=== PATIENT | female | born 1930 | race Caucasian/White ===

== ENCOUNTER 2016-12-27 14:26 | Inpatient (IN) | payer MEDICARE, OTHER ==
[~2016-12-27] VITALS: Ht 165.1 cm; Wt 74.4 kg
[~2016-12-27 14:26] MED LIST: AC325T PO; AMLO10TA82 PO; AMLO5TAB2 PO; ASP81CT PO; ASPI-266 PO; ASPI-892 PO; ASPI325T32 PO; ATEN50TA PO; Aspirin PO; BISA5TAB8 PO; CLOP75TA PO; DOCU100T7 PO; FEXO-104 PO; FLUT16SP22 NSEACH; GINK60CA13 PO; KRIL500C PO; LISI10TA2 PO; LISI20TA PO; LOVA40TA2 PO; LVT.025T PO; LVT.05T PO; METO25TA PO; MTP25TSR PO; MULT-974 PO; MULT1TAB12 PO; PANT40TA PO; SIMV40TA4 PO; TRIA1TAB PO; TRIAMT/HCTZ PO; [UNRECOGNIZED DRUG - OTHER] PO
--- OUTSIDE RECORDS SUMMARY | 2016-12-27 14:31 | XMS REPORT | Continuity of Care Document ---
Author Author [facility] Organization [facility] Address Unknown Phone Unavailable Care Team Providers Care Bank Worker Name Role Phone MARYBETH PAUL MD PCP Insurance Providers Payer Name Policy Number Subscriber Name Relationship Wps Medicare [id number] Nasima Tolbert 18 Self / Same As Patient Advance Directives Directive Response Recorded Date/Time Advance Directives Yes 03/30/15 2:15pm Health Care Power of Director Of Market Analysis Y Mitesh 03/30/15 2:15pm Organ Donor Yes 03/30/15 2:15pm Resuscitation Status DNR-Pt Request 03/30/15 2:15pm Problems No known problems or medical conditions. Medications Medication Dose Route Sig Days/Qty Instructions Order Date Discontinued Date Status Amlodipine Besylate (Norvasc 10 Mg) 10 Mg PO DAILY 01/20/12 Discontinued Simvastatin 40 Mg PO BEDTIME 01/20/12 03/30/15 Discontinued Lisinopril 20 Mg PO TWICE A DAY 01/20/12 04/02/15 Discontinued [Triamt/Hctz] 1 Tab PO EVERY OTHER DAY 01/20/12 02/21/12 Discontinued Levothyroxine Sodium (Levothroid) 75 Mcg PO DAILY 01/20/12 03/30/15 Discontinued Atenolol 50 Mg PO TWICE A DAY 01/20/12 03/30/15 Discontinued Docusate Sodium 100 Mg PO DAILY 01/20/12 03/30/15 Discontinued [Abc Plus Senior] 1 Tab PO DAILY 01/20/12 03/30/15 Discontinued Aspirin 81 Mg PO DAILY 01/20/12 02/22/12 Discontinued Krill Oil 300 Mg PO DAILY 01/20/12 02/07/12 Discontinued Acetaminophen 650 Mg PO EVERY 4HRS PRN 01/20/12 02/22/12 Discontinued Krill Oil 300 Mg PO DAILY 02/07/12 02/22/12 Discontinued Triamterene/Hydrochlorothiazid 1 Each PO THREE TIMES A WEEK 02/21/12 02/22/12 Discontinued Bisacodyl 5 Mg PO DAILY 02/21/12 03/30/15 Discontinued Clopidogrel Bisulfate 75 Mg PO DAILY 02/22/12 Active Aspirin 81 Mg PO DAILY 02/22/12 03/31/15 Discontinued Amlodipine Besylate (Norvasc 5 Mg) 5 Mg PO DAILY 03/30/15 04/02/15 Discontinued Levothyroxine Sodium (Levothroid) 50 Mcg PO DAILY 03/30/15 Active Lovastatin (Mevacor) 40 Mg PO DAILY 03/30/15 Active Pantoprazole Sodium 40 Mg PO 1800 03/30/15 Active Fluticasone Propionate 2 Sprays NSEACH DAILY 03/30/15 Active Multivitamin 1 Tab PO DAILY 03/30/15 Active Aspirin 81 Mg PO DAILY 03/31/15 03/31/15 Discontinued Lisinopril 10 Mg PO DAILY 30 Qty 04/02/15 Active [Aspirin] 81 Mg PO DAILY 30 Qty 04/02/15 Active Metoprolol Succinate (Metoprolol ER 25mg) 25 Mg PO DAILY@1999 30 Qty Active Social History Social History Problem Response Recorded Date/Time Alcohol Use Occasionally Uses 03/30/2015 2:14pm Recreational Drug Use No 03/30/2015 2:14pm Recent Foreign Travel No 03/30/2015 2:15pm Recent Infectious Disease Exposure No 03/30/2015 2:14pm Hospitalization with Isolation Denies 04/02/2015 12:21pm Smoking Status Former Smoker 03/30/2015 2:15pm Query Response Start Date Stop Date Smoking Status Former Smoker 11/14/1984 Hospital Discharge Instructions Patient Instructions Physician Instructions New, Converted or Re-Newed RX: Transmitted to Pharmacy (Aspirin is over the counter) Goal/Follow Up Appt: Follow up with Dr. Hopkins in 2 weeks. Follow up with primary doctor within 2 weeks after discharge. Return to [facility] For: Chest pain, shortness of breath, fever Discharge Diet: Cardiac Diet Activity as Tolerated: Yes Care Plan Goal:: Follow up with Dr. Hopkins in 2 weeks.Follow up with primary doctor within 2 weeks after discharge. Plan of Care Discharge Date 04/02/15 10:50am Disposition 30 STILL A PATIENT Instructions/Education Provided CHF CARDIAC CATH DISCHARGE INSTRUC Coronary Intravascular Stent Placement (DC) Prescriptions See Medications Section Referrals TRACEY HOPKINS MD (Unspecified) 04/16/15 Address: [address] [place] [address] [id number] Reason(s) for Referral: APRIL 16, 2015 AT 3:00 P.M. MARYBETH PAUL MD (Unspecified) 04/18/15 Address: [address] [place] [address] [id number] Reason(s) for Referral: APRIL 18, 2015 AT 9:00 A.M. Functional Status Query Response Date Recorded Comprehension Ability Understands Concepts April 02, 2015 8:30am Allergies, Adverse Reactions, Alerts Allergen Type Severity Reaction Status Last Updated Codeine Allergy Unknown Active 03/30/15 Immunizations Name Given Type Date of Pneumonia Vaccine 11/14/11 Historical Vital Signs Acute Vital Signs Vital Response Date/Time Temperature (Fahrenheit) 99.1 degrees F (97.6 - 99.5) Temperature (Calculated Celsius) 37.47613 degrees C (36.4 - 37.5) Temperature Source Temporal Pulse Rate (adult) 89 bpm (60 - 90) Respiratory Rate 20 bpm (12 - 24) O2 Sat by Pulse Oximetry 93 % (88 - 100) Blood Pressure 145/75 mm Hg Pain Pain Intensity 0 Height (Feet) 5 feet Height (Inches) 5.00 inches Height (Calculated Centimeters) 165.103688 cm Weight (Pounds) 174 pounds Weight (Ounces) 1.0 oz Weight (Calculated Grams) 85116.423 gm Weight (Calculated Kilograms) 78.033956 kilograms Calculated BMI 24.96 Results Laboratory Results Test Name Result Units Flags Reference Collection Date/Time Result Date/ Time Comments White Blood Count 6.5 10^3/uL 4.3-11.0 04/02/2015 3:5304/02/2015 4: 17am Red Blood Count 3.23 10^6/uL L 4.35-5.85 04/02/2015 3:5304/02/2015 4: 17am Hemoglobin 9.9 G/DL L 11.5-16.0 04/02/2015 3:5304/02/2015 4:17am Hematocrit 31 % L 35-52 04/02/2015 3:5304/02/2015 4:17am Mean Corpuscular Volume 94 FL 80-99 04/02/2015 3:04/02/2015 4: 17am Mean Corpuscular Hemoglobin 31 PG 25-34 04/02/2015 3:04/02/2015 4: 17am Mean Corpuscular Hemoglobin Concent 33 G/DL 32-36 04/02/2015 3: 4:17am Red Cell Distribution Width 14.4 % 10.0-14.5 04/02/2015 3:2014 4:17am Platelet Count 228 10^3/uL 130-400 04/02/2015 3:04/02/2015 4:17am Mean Platelet Volume 9.8 FL 7.4-10.4 04/02/2015 3:04/02/2015 4: 17am Neutrophils (%) (Auto) 76 % H 42-75 04/02/2015 3:04/02/2015 4:17am Lymphocytes (%) (Auto) 15 % 12-44 04/02/2015 3:04/02/2015 4:17am Monocytes (%) (Auto) 8 % 0-12 04/02/2015 3:04/02/2015 4:17am Eosinophils (%) (Auto) 2 % 0-10 04/02/2015 3:04/02/2015 4:17am Basophils (%) (Auto) 0 % 0-10 04/02/2015 3:04/02/2015 4:17am Neutrophils # (Auto) 5.0 X 10^3 1.8-7.8 04/02/2015 3:53am 04/02/2015 4: 17am Lymphocytes # (Auto) 1.0 X 10^3 1.0-4.0 04/02/2015 3:53am 04/02/2015 4: 17am Monocytes # (Auto) 0.5 X 10^3 0.0-1.0 04/02/2015 3:53am 04/02/2015 4: 17am Eosinophils # (Auto) 0.1 10^3/uL 0.0-0.3 04/02/2015 3:53am 04/02/2015 4 :17am Basophils # (Auto) 0.0 10^3/uL 0.0-0.1 04/02/2015 3:53am 04/02/2015 4: 17am Erythrocyte Sedimentation Rate 10 MM/HR 0-30 03/30/2015 8:26pm 2014 8:54pm Prothrombin Time 13.5 SEC 12.2-14.7 04/02/2015 3:53am 04/02/2015 4: 40am INR Comment 1.1 0.8-1.4 04/02/2015 3:53am 04/02/2015 4:40am INTERPRETIVE DATA SUGGESTED THERAPEUTIC RANGE FOR INR'S: VENOUS THROMBOSIS, PULMONARY EMBOLISM, OR PREVENTION OF SYSTEMIC EMBOLISM (EG. IN ATRIAL FIBRILLATION): 2.0 - 3.0 MECHANICAL PROSTHETIC HEART VALVES: 2.5 - 3.5* *NOTE: INR'S UP TO 4.5 MAY BE NECESSARY IN SELECTED GROUPS OF HIGH RISK PATIENTS. [employer]IX[employer] [employer] OF CHEST PHYSICIANS CONSENSUS CONFERENCE ON ANTITHROMBOTIC THERAPY (2000). Activated Partial Thromboplast Time 33 SEC 24-35 2015 5:34am 6:59am Sodium Level 140 MMOL/L 135-145 04/02/2015 3:53am 04/02/2015 4:49am Potassium Level 3.8 MMOL/L 3.6-5.0 04/02/2015 3:53am 04/02/2015 4:49am Chloride Level 109 MMOL/L H 98-107 04/02/2015 3:53am 04/02/2015 4:49am Carbon Dioxide Level 20 MMOL/L L 21-32 04/02/2015 3:53am 04/02/2015 4: 49am Blood Urea Nitrogen 12 MG/DL 7-18 04/02/2015 3:53am 04/02/2015 4:49am Creatinine 0.77 MG/DL 0.60-1.30 04/02/2015 3:53am 04/02/2015 4:49am BUN/Creatinine Ratio 16 04/02/2015 3:53am 04/02/2015 4:49am Estimat Glomerular Filtration Rate > 60 04/02/2015 3:53am 2014 4:49am GFR INTERPRETIVE DATA UNITS FOR ESTIMATED GFR (eGFR): mL/min/1.73 M2 REFERENCE RANGE FOR ESTIMATED GFR (eGFR) eGFR NORMAL eGFR >60 MODERATELY DECREASED eGFR 30-59 SEVERLY DECREASED eGFR 15-29 KIDNEY FAILURE <15 (OR DIALYSIS) Glucose Level 98 MG/DL 70-105 04/02/2015 3:53am 04/02/2015 4:49am Glucometer 115 MG/DL H 70-110 03/31/2015 6:54pm 03/31/2015 7:01pm Calcium Level 8.3 MG/DL L 8.5-10.1 04/02/2015 3:53am 04/02/2015 4:49am Magnesium Level 1.8 MG/DL 1.8-2.4 04/02/2015 3:53am 04/02/2015 4:49am Total Bilirubin 0.4 MG/DL 0.1-1.0 03/30/2015 11:40am 03/30/2015 12: 07pm Alkaline Phosphatase 46 U/L 40-136 03/30/2015 11:40am 03/30/2015 12: 07pm Aspartate Amino Transf (AST/SGOT) 41 U/L H 5-34 03/30/2015 11:40am 2014 12:07pm Alanine Aminotransferase (ALT/SGPT) 17 U/L 0-55 03/30/2015 11:40am 12:07pm Troponin I 2.13 NG/ML CH <0.30 03/30/2015 11:40am 03/30/2015 12:14pm RESULT CALLED TO DANI/LAYLA AT 1213. RESULTS READ BACK: YES. Troponin I 3.76 NG/ML CH <0.30 03/30/2015 5:29pm 03/30/2015 6:00pm RESULT CALLED TO JEYSON AT 1759. RESULTS READ BACK: YES. Myoglobin 213.9 NG/ML H 10.0-92.0 03/30/2015 11:40am 03/30/2015 12:14pm Total Protein 7.1 G/DL 6.4-8.2 03/30/2015 11:40am 03/30/2015 12:07pm Albumin 4.3 G/DL 3.2-4.5 03/30/2015 11:40am 03/30/2015 12:07pm Triglycerides Level 114 MG/DL <150 03/31/2015 7:55am 03/31/2015 8:31am Cholesterol Level 152 MG/DL < 200 03/31/2015 7:55am 03/31/2015 8:31am HDL Cholesterol 50 MG/DL 40-60 03/31/2015 7:55am 03/31/2015 8:31am LDL Cholesterol Direct 70 MG/DL 1-129 03/31/2015 7:55am 03/31/2015 8: 31am VLDL Cholesterol 23 MG/DL 5-40 03/31/2015 7:55am 03/31/2015 8:31am C-Reactive Protein High Sensitivity 1.44 MG/DL H 0.00-0.50 03/30/2015 5: 29pm 03/30/2015 8:42pm Hemoglobin A1c 6.4 % H 4.5-6.2 03/31/2015 7:55am 03/31/2015 12:08pm Procedures Procedure Status Date Provider(s) Tracing only of electrocardiogram completed 03/30/15 REDD SWANSON APRN Color Doppler echocardiography completed 03/30/15 STEPHANIA ARORA MD Tracing only of electrocardiogram completed 03/30/15 TRACEY HOPKINS MD Encounters Encounter Location Date/Time Admitted Inpatient Via [facility] 03/30/15 12:54pm
[2016-12-27] MEDS ORDERED: FAMOTIDINE 20MG/2ML IV (PEPCID) IV STA (14:42)
[2016-12-27] MEDS ORDERED: LIDOCAINE 2% VISCOUS 15 ML UDC PO ONE (14:45)
[2016-12-27] MEDS ORDERED: ANTACID SUSP 30 ML UDC (MYLANTA) PO ONE (14:45)
[2016-12-27] MEDS ORDERED: ASPIRIN 81 MG CHEW (CHILDREN'S ASA) PO ONE (14:45)
[2016-12-27 14:51] LABS: BASOPHILS % (AUTO) 0 % (0-10); EOSINOPHILS # (AUTO) 0.1 10^3/uL (0.0-0.3); EOSINOPHILS % (AUTO) 1 % (0-10); LYMPHOCYTES # (AUTO) 0.9 X 10^3 (1.0-4.0); LYMPHOCYTES % (AUTO) 10 % (12-44); MEAN CORPUSCULAR HEMOGLOBIN 31 PG (25-34); MEAN CORPUSCULAR HGB CONC 34 G/DL (32-36); MEAN CORPUSCULAR VOLUME 93 FL (80-99); MEAN PLATELET VOLUME 9.4 FL (7.4-10.4); MONOCYTES # (AUTO) 0.9 X 10^3 (0.0-1.0); MONOCYTES % (AUTO) 11 % (0-12); NEUTROPHILS # (AUTO) 6.7 X 10^3 (1.8-7.8); NEUTROPHILS % (AUTO) 78 % (42-75); PLATELET COUNT 246 10^3/uL (130-400); RED CELL DISTRIBUTION WIDTH 13.3 % (10.0-14.5); WHITE BLOOD COUNT 8.6 10^3/uL (4.3-11.0)
[2016-12-27 15:01] LABS: INR 1.1 (0.8-1.4); PROTHROMBIN TIME PATIENT 13.4 SEC (12.2-14.7)
[2016-12-27 15:09] LABS: ALBUMIN 4.3 G/DL (3.2-4.5); BILIRUBIN,TOTAL 0.5 MG/DL (0.1-1.0); CALCIUM 9.5 MG/DL (8.5-10.1); CREATININE SERUM 0.98 MG/DL (0.60-1.30); MAGNESIUM 1.8 MG/DL (1.8-2.4); POTASSIUM 4.3 MMOL/L (3.6-5.0); TOTAL PROTEIN 6.9 G/DL (6.4-8.2)
[2016-12-27] MEDS ORDERED: LEVO50TA6 (15:13)
[2016-12-27 15:16] LABS: MYOGLOBIN SERUM 32.4 NG/ML (10.0-92.0)
--- NOTE | 2016-12-27 15:23 | Diagnostic Imaging Report ---
PA and lateral views of the chest. INDICATION: Fever, pain and cough. COMPARISON: 09/01/2015. FINDINGS: There is mild cardiomegaly with no vascular congestion or overt edema. No effusion or pneumothorax. The mediastinum and oscar appear unremarkable. Sternotomy wires and post CABG changes seen. IMPRESSION: Cardiomegaly. Dictated by: Dictated on workstation # [id number]
--- OUTSIDE RECORDS SUMMARY | 2016-12-27 15:28 | XMS REPORT | Continuity of Care Document ---
Author Author [facility] Organization [facility] Address Unknown Phone Unavailable Care Team Providers Care Territory Service Representative Name Role Phone MARYBETH PAUL MD PCP Insurance Providers Payer Name Policy Number Subscriber Name Relationship Wps Medicare [id number] Nasima Tolbert 18 Self / Same As Patient Advance Directives Directive Response Recorded Date/Time Advance Directives Yes 03/30/15 2:15pm Health Care Power of Cabinetmaker Maintenance Y Mitesh 03/30/15 2:15pm Organ Donor Yes [...] Referrals TRACEY HOPKINS MD (Unspecified) 04/16/15 Address: [address] [place] [address] [id number] Reason(s) for Referral: APRIL 16, 2015 AT 3:00 P.M. MARYBETH PAUL MD (Unspecified) 04/18/15 Address: [address] [place] [address] [id number] Reason(s) for Referral: APRIL 18, 2015 AT [...] F (97.6 - 99.5) Temperature (Calculated Celsius) 37.97888 degrees C (36.4 - 37.5) Temperature Source Temporal Pulse Rate (adult) 89 bpm (60 - 90) Respiratory Rate 20 bpm (12 - 24) O2 Sat by Pulse Oximetry 93 % (88 - 100) Blood Pressure 145/75 mm Hg Pain Pain Intensity 0 Height (Feet) 5 feet Height (Inches) 5.00 inches Height (Calculated Centimeters) 165.959758 cm Weight (Pounds) 174 pounds Weight (Ounces) 1.0 oz Weight (Calculated Grams) 29152.423 gm Weight (Calculated Kilograms) 78.080715 kilograms Calculated BMI 24.96 Results Laboratory Results [...] SELECTED GROUPS OF HIGH RISK PATIENTS. [employer] [employer] OF CHEST PHYSICIANS CONSENSUS CONFERENCE ON [...] Encounters Encounter Location Date/Time Admitted Inpatient Via [facility] 03/30/15 12:54pm
--- OUTSIDE RECORDS SUMMARY | 2016-12-27 15:29 | XMS REPORT | Continuity of Care Document ---
Author Author [facility] Organization [facility] Address Unknown Phone Unavailable Care Team Providers Care Kier Operator Name Role Phone MARYBETH PAUL MD PCP Insurance Providers Payer Name Policy Number Subscriber Name Relationship Wps Medicare [id number] Nasima Tolbert 18 Self / Same As Patient Advance Directives Directive Response Recorded Date/Time Advance Directives Yes 03/30/15 2:15pm Health Care Power of Continuous Improvement Director Y Mitesh 03/30/15 2:15pm Organ Donor Yes [...] Care Plan Goal:: Follow up with Dr. Hopikns in 2 weeks.Follow up with primary doctor within 2 weeks after discharge. Plan of Care Discharge Date 04/02/15 10:50am Disposition 30 STILL A PATIENT Instructions/Education Provided CHF CARDIAC CATH DISCHARGE INSTRUC Coronary Intravascular Stent Placement (DC) Prescriptions See Medications Section Referrals TRACEY HOPKINS MD (Unspecified) 04/16/15 Address: [address] [place] [address] [phone] Reason(s) for Referral: APRIL 16, 2015 AT 3:00 P.M. MARYBETH PAUL MD (Unspecified) 04/18/15 Address: [address] [place] [address] [id number] Reason(s) for Referral: APRIL 18, 2015 AT [...] F (97.6 - 99.5) Temperature (Calculated Celsius) 37.76202 degrees C (36.4 - 37.5) Temperature Source Temporal Pulse Rate (adult) 89 bpm (60 - 90) Respiratory Rate 20 bpm (12 - 24) O2 Sat by Pulse Oximetry 93 % (88 - 100) Blood Pressure 145/75 mm Hg Pain Pain Intensity 0 Height (Feet) 5 feet Height (Inches) 5.00 inches Height (Calculated Centimeters) 165.192668 cm Weight (Pounds) 174 pounds Weight (Ounces) 1.0 oz Weight (Calculated Grams) 23199.423 gm Weight (Calculated Kilograms) 78.960540 kilograms Calculated BMI 24.96 Results Laboratory Results [...] SELECTED GROUPS OF HIGH RISK PATIENTS. [employer] OF CHEST PHYSICIANS CONSENSUS CONFERENCE ON [...] Encounters Encounter Location Date/Time Admitted Inpatient Via [facility] 03/30/15 12:54pm
[2016-12-27] MEDS ORDERED: HEParin (CATH LAB) 0 ML IV ONE (15:30)
[2016-12-27] MEDS ORDERED: NS IV 1000 ML 0 ML ONE (15:30)
[2016-12-27] MEDS ORDERED: LIDOCAINE 1% INJ 20 ML (XYLOCAINE) VIAL ONE ×2 (15:30)
[2016-12-27] MEDS ORDERED: NS IV 1000 ML 1,000 ML ONE (15:31)
[2016-12-27] MEDS ORDERED: HEParin (CATH LAB) 1,000 ML IV ONE ×2 (15:31)
[2016-12-27] MEDS ORDERED: fentaNYL INJECTION 100 MCG/2 ML AMP ONE (15:32)
[2016-12-27] MEDS ORDERED: MIDAZOLAM 5 MG/5 ML (VERSED) VIAL ONE (15:32)
--- NOTE | 2016-12-27 15:41 | ED Chest Pain ---
General Chief Complaint: Chest Pain Stated Complaint: ELEVATED TROPONIN Nursing Triage Note: AMB TO ROOM FROM [facility] WITH C/O CHEST PAIN ONSET LAST NIGHT DESCRIBES PAIN WORSE WITH MOVEMENT Nursing Sepsis Screen: No Definite Risk Source: patient Exam Limitations: no limitations History of Present Illness Time seen by provider: 14:35 Initial Comments This 86-year-old woman presents to the emergency room as a referral from [facility] where she presented for chest pain. Chest pain started last night and woke her from sleep as 04:00. It started in her shoulders and moved to her chest. Pain is worse with deep breathing and she has reproducible pain with palpation of the epigastrium just below the sternum. She arrives via private vehicle from [facility]. Staff there was under the impression she was no longer having chest pain. However, patient states she has continued to have constant chest pain throughout the morning. She has also had recent cough without fever. She denies nausea, vomiting, diarrhea, lightheadedness, or other acute symptoms. She had some calf cramps bilaterally, greater on the left a couple of days ago. She now has tenderness in both calves. Pain is characterized as sharp and in the central sternal region. It is rated as 6/10 now and was 9/10 at its worst. She has not had any aspirin or nitroglycerin today. She has a history of coronary artery disease with numerous stents both in the coronary arteries and peripherally. Dr. Sue was her system engineer and she has not reestablished with a system engineer since he moved. Allergies and Home Medications Allergies Coded Allergies: codeine (Verified Allergy, Unknown, 03/30/15) Uncoded Allergies: FLU VAC (Allergy, Severe, 12/27/16) Home Medications Aspirin 81 Mg Tabec 81 MG PO HS (Reported) Clopidogrel Bisulfate 75 Mg Tablet 75 MG PO DAILY (Reported) Levothyroxine Sodium 50 Mcg Tablet 50 MCG PO DAILY (Reported) Levothyroxine Sodium 50 Mcg Tablet #30 (Reported) Lisinopril 20 Mg Tablet 10 MG PO DAILY (Reported) TAKES 1/2 (20MG) TABLET Lovastatin 40 Mg Tablet 40 MG PO DAILY (Reported) Metoprolol Succinate 25 Mg Tab.sr.24h 25 MG PO DAILY (Reported) Multivitamins W-Minerals 1 Each Tablet 1 TAB PO DAILY (Reported) Pantoprazole Sodium 40 Mg Tablet.dr 40 MG PO 1800 (Reported) Review of Systems Constitutional: no symptoms reported EENTM: No Symptoms Reported Respiratory: See HPI Cardiovascular: See HPI Gastrointestinal: See HPI Genitourinary: No Symptoms Reported Musculoskeletal: see HPI Skin: no symptoms reported Psychiatric/Neurological: No Symptoms Reported Endocrine: No Symptoms Reported Past Ekcgelr-Nrdsiz-Ypgant Hx Patient Social History Alcohol Use: Occasionally Uses Recreational Drug Use: No Smoking Status: Former Smoker Former Smoker/When Quit: Nov 14, 1984 Recent Foreign Travel: No Contact w/Someone Who Travel: No Recent Infectious Disease Expo: No Recent Hopitalizations: No Immunizations Up To Date Date of Pneumonia Vaccine: Nov 14, 2011 Seasonal Allergies Seasonal Allergies: No Surgeries HX Surgeries: Yes Surgeries: CABG, Coronary Stent, Vascular Surgery (stents) Respiratory Hx Respiratory Disorders: No Cardiovascular Hx Cardiac Disorders: Yes Cardiac Disorders: Coronary Artery Disease, High Cholesterol, Hypertension, Peripheral Vascular Neurological Hx Neurological Disorders: No Reproductive System Hx Reproductive Disorders: No Genitourinary Hx Genitourinary Disorders: No Gastrointestinal Hx Gastrointestinal Disorders: Yes Gastrointestinal Disorders: Gastroesophageal Reflux Musculoskeletal Hx Musculoskeletal Disorders: Yes Musculoskeletal Disorders: Arthritis Endocrine Hx Endocrine Disorders: Yes Endocrine Disorders: Hypothyroidsim, Diabetes, Non-Insulin dep HEENT HX ENT Disorders: No (WEARS GLASSES) Cancer Hx Cancer: No Psychosocial Hx Psychiatric Problems: No Integumentary HX Skin/Integumentary Disorder: No Blood Transfusions Hx Blood Disorders: No Adverse Reaction to a Blood Tr: No Physical Exam Vital Signs Vital Sign - Last 12Hours 12/27/16 14:26 Temp 100.0 Pulse 92 Resp 18 B/P 160/90 Pulse Ox 95 O2 Delivery Room Air O2 Flow Rate 2 Capillary Refill : Less Than 3 Seconds General Appearance: No Apparent Distress WD/WN HEENT: PERRL/EOMI Normal ENT Inspection Neck: Normal Inspection Respiratory: Lungs Clear Normal Breath Sounds No Accessory Muscle Use No Respiratory Distress Other (central chest is tender to palpation) Cardiovascular: Regular Rate, Rhythm No Edema No Murmur Normal Peripheral Pulses Gastrointestinal: Normal Bowel Sounds Soft Tenderness (tenderness to palpation in the epigastrium and reproduction of chest pain with palpation of the epigastrium) Extremity: No Pedal Edema Calf Tenderness Neurologic/Psychiatric: Alert Oriented x3 No Motor/Sensory Deficits Normal Mood/Affect field agent II-XII Norm as Tested Skin: Normal Color Warm/Dry Progress/Results/Core Measures Results/Orders Lab Results Laboratory Tests Test 12/27/16 14:43 Range/Units Activated Partial Thromboplast Time 27 24-35 SEC Alanine Aminotransferase (ALT/SGPT) 19 0-55 U/L Albumin 4.3 3.2-4.5 G/DL Alkaline Phosphatase 59 40-136 U/L Anion Gap 11 5-14 MMOL/L Aspartate Amino Transf (AST/SGOT) 16 5-34 U/L BUN/Creatinine Ratio 17 Basophils # (Auto) 0.0 0.0-0.1 10^3/uL Basophils (%) (Auto) 0 0-10 % Blood Urea Nitrogen 17 7-18 MG/DL Calcium Level 9.5 8.5-10.1 MG/DL Carbon Dioxide Level 26 21-32 MMOL/L Chloride Level 103 98-107 MMOL/L Creatinine 0.98 0.60-1.30 MG/DL D-Dimer 0.37 0.00-0.49 UG/ML Eosinophils # (Auto) 0.1 0.0-0.3 10^3/uL Eosinophils (%) (Auto) 1 0-10 % Estimat Glomerular Filtration Rate 54 Glucose Level 158 H 70-105 MG/DL Hematocrit 37 35-52 % Hemoglobin 12.5 11.5-16.0 G/DL INR Comment 1.1 0.8-1.4 Lipase 12 8-78 U/L Lymphocytes # (Auto) 0.9 L 1.0-4.0 X 10^3 Lymphocytes (%) (Auto) 10 L 12-44 % Magnesium Level 1.8 1.8-2.4 MG/DL Mean Corpuscular Hemoglobin 31 25-34 PG Mean Corpuscular Hemoglobin Concent 34 32-36 G/DL Mean Corpuscular Volume 93 80-99 FL Mean Platelet Volume 9.4 7.4-10.4 FL Monocytes # (Auto) 0.9 0.0-1.0 X 10^3 Monocytes (%) (Auto) 11 0-12 % Myoglobin 32.4 10.0-92.0 NG/ML Neutrophils # (Auto) 6.7 1.8-7.8 X 10^3 Neutrophils (%) (Auto) 78 H 42-75 % Platelet Count 246 130-400 10^3/uL Potassium Level 4.3 3.6-5.0 MMOL/L Prothrombin Time 13.4 12.2-14.7 SEC Red Blood Count 4.00 L 4.35-5.85 10^6/uL Red Cell Distribution Width 13.3 10.0-14.5 % Sodium Level 140 135-145 MMOL/L Total Bilirubin 0.5 0.1-1.0 MG/DL Total Protein 6.9 6.4-8.2 G/DL Troponin I 0.79 *H <0.30 NG/ML White Blood Count 8.6 4.3-11.0 10^3/uL My Orders Orders-THALIA FRY MD Cbc With Automated Diff (12/27/16 14:42) Magnesium (12/27/16 14:42) Ekg Tracing (12/27/16 14:42) Cardiac Profile 1 (12/27/16 14:42) Comprehensive Metabolic Panel (12/27/16 14:42) Myoglobin Serum (12/27/16 14:42) Protime With Inr (12/27/16 14:42) Partial Thromboplastin Time (12/27/16 14:42) O2 (12/27/16 14:42) Monitor-Rhythm Ecg Trace Only (12/27/16 14:42) Saline Lock/Iv-Start (12/27/16 14:42) Chest Pa/Lat (2 View) (12/27/16 14:42) Lipase (12/27/16 14:42) Lidocaine 2% Viscous 15 Ml (Xylocaine Vi (12/27/16 14:45) Antacid Suspension (Mylanta Suspension (12/27/16 14:45) Famotidine Injection (Pepcid Injection) (12/27/16 14:42) Aspirin Chewable Tablet (Baby Aspirin Ch (12/27/16 14:45) Fibrin Degradation Products (12/27/16 14:44) Medications Given in ED Current Medications Medications Dose Ordered Sig/Britney Route Start Time Stop Time Status Last Admin Dose Admin Al Hydrox/Mg Hydrox/Simethicone 30 ml ONCE ONCE PO 12/27/16 14:45 12/27/16 14:46 DC 12/27/16 14:51 30 ML Aspirin 324 mg ONCE ONCE PO 12/27/16 14:45 12/27/16 14:46 DC 12/27/16 14:50 324 MG Lidocaine HCl 15 ml ONCE ONCE PO 12/27/16 14:45 12/27/16 14:46 DC 12/27/16 14:51 15 ML Vital Signs/I&O Vital Sign - Last 12Hours 12/27/16 12/27/16 14:26 14:26 Temp 100.0 Pulse 92 Resp 18 B/P 160/90 Pulse Ox 95 O2 Delivery Room Air Nasal Cannula O2 Flow Rate 2 Blood Pressure Mean: 113 Progress Note : Time: 15:39 Progress Note Patient had mixed presentation of chest pain with features of both GI and musculoskeletal pain. She had some relief with a GI cocktail. Aspirin was also administered shortly after assessment. ST depression was noted on EKG without ST elevation. Troponin returned elevated and Dr. Diaz was called immediately. He promptly presented to the emergency room and presented plan to go directly to catheter lab. Patient is agreeable. No further medication administration was requested by Dr. Diaz. ECG Initial ECG Impression Date: Dec 27, 2016 Initial ECG Impression Time: 14:32 Initial ECG Rate: 98 Initial ECG Rhythm: Normal Sinus Initial ECG Intervals Borderline QT interval Comment Sinus rhythm with no ST elevation. There is ST depression in multiple leads. No axis deviation. Diagnostic Imaging Diagonstic Imaging: Xray Plain Films/CT/US/NM/MRI: chest Comments Chest x-ray viewed by me and report reviewed. See report below: NAME: MAUDE [facility]OL[facility]ERT [facility] REC#: [id number] PT STATUS: REG ER : 1932 PHYSICIAN: THALIA FRY MD ADMIT DATE: 12/27/16/ER Draft Date of Exam:12/27/16 CHEST PA/LAT (2 VIEW) PA and lateral views of the chest. INDICATION: Fever, pain and cough. COMPARISON: 09/01/2015. FINDINGS: There is mild cardiomegaly with no vascular congestion or overt edema. No effusion or pneumothorax. The mediastinum and oscar appear unremarkable. Sternotomy wires and post CABG changes seen. IMPRESSION: Cardiomegaly. Dictated on workstation # [id number] Dict: 12/27/16 1518 Trans: 12/27/16 1523 [id number] Interpreted by: DAVE MARIE MD Departure Impression Impression: Primary Impression: NSTEMI (non-ST elevated myocardial infarction) Disposition: ADMITTED INPATIENT Condition: Stable Decision to Admit Reason: Admit from ER (General) Decision to Admit/Date: Dec 27, 2016 Time/Decision to Admit Time: 15:30 Departure-Patient Inst. Referrals: MARYBETH PAUL MD (PCP/Family) Primary Care Physician THALIA FRY MD Dec 27, 2016 15:41
--- NOTE | 2016-12-27 15:50 | Consultation-Cardiology ---
HPI-Cardiology Cardiology Consultation Date of Consultation 12/27/16 Date of Admission Indication: chest pain HPI 86-year-old lady with extensive history of coronary artery disease, had history of CABG 4, multiple interventions in the past. Last workup was done in 2014. She was seen and followed by Dr. Sue, no further follow-up since he left our area. She was doing well until yesterday when she started having chest pain , continue to have waxing and waning recurrent chest pain. Shortness of breath. No palpitation, no syncope or near syncopal episodes. Came in to the emergency room with EKG changes and elevated troponin. During my evaluation patient was having active chest pain Home Medications & Allergies Allergies: Coded Allergies: codeine (Verified Allergy, Unknown, 03/30/15) Uncoded Allergies: FLU VAC (Allergy, Severe, 12/27/16) Home Medication List Reviewed: Yes [id number] Hx Patient Social History Marital Status: Alcohol Use: Occasionally Uses Recreational Drug Use: No Smoking Status: Former Smoker Former smoker/When Quit: Nov 14, 1984 Recent Foreign Travel: No Recent Infectious Disease Expo: No Recent Hopitalizations: No Immunizations Up To Date Date of Pneumonia Vaccine: Nov 14, 2011 Past Medical History past medical history as discussed below Family Medical History Family Medical Hx noncontributory to her current condition Constitutional: no symptoms reported see HPI EENTM: no symptoms reported see HPI Respiratory: see HPINo cough, dyspnea on exertionNo hemoptysis, No orthopnea , No phlegm, No short of breath, No stridor, No wheezing, No other Cardiovascular: see HPI chest painNo edema, No Hx of Intervention, No palpitations, No syncope, No vascular heart diseas, No other Gastrointestinal: no symptoms reported see HPI Genitourinary: no symptoms reported see HPI Musculoskeletal: no symptoms reported see HPI Skin: no symptoms reported see HPI Psychiatric/Neurological: No Symptoms Reported See HPI Reviewed Test Results Reviewed Test Results Lab Laboratory Tests Test 12/27/16 14:43 Range/Units Activated Partial Thromboplast Time 27 24-35 SEC Alanine Aminotransferase (ALT/SGPT) 19 0-55 U/L Albumin 4.3 3.2-4.5 G/DL Alkaline Phosphatase 59 40-136 U/L Anion Gap 11 5-14 MMOL/L Aspartate Amino Transf (AST/SGOT) 16 5-34 U/L BUN/Creatinine Ratio 17 Basophils # (Auto) 0.0 0.0-0.1 10^3/uL Basophils (%) (Auto) 0 0-10 % Blood Urea Nitrogen 17 7-18 MG/DL Calcium Level 9.5 8.5-10.1 MG/DL Carbon Dioxide Level 26 21-32 MMOL/L Chloride Level 103 98-107 MMOL/L Creatinine 0.98 0.60-1.30 MG/DL D-Dimer 0.37 0.00-0.49 UG/ML Eosinophils # (Auto) 0.1 0.0-0.3 10^3/uL Eosinophils (%) (Auto) 1 0-10 % Estimat Glomerular Filtration Rate 54 Glucose Level 158 H 70-105 MG/DL Hematocrit 37 35-52 % Hemoglobin 12.5 11.5-16.0 G/DL INR Comment 1.1 0.8-1.4 Lipase 12 8-78 U/L Lymphocytes # (Auto) 0.9 L 1.0-4.0 X 10^3 Lymphocytes (%) (Auto) 10 L 12-44 % Magnesium Level 1.8 1.8-2.4 MG/DL Mean Corpuscular Hemoglobin 31 25-34 PG Mean Corpuscular Hemoglobin Concent 34 32-36 G/DL Mean Corpuscular Volume 93 80-99 FL Mean Platelet Volume 9.4 7.4-10.4 FL Monocytes # (Auto) 0.9 0.0-1.0 X 10^3 Monocytes (%) (Auto) 11 0-12 % Myoglobin 32.4 10.0-92.0 NG/ML Neutrophils # (Auto) 6.7 1.8-7.8 X 10^3 Neutrophils (%) (Auto) 78 H 42-75 % Platelet Count 246 130-400 10^3/uL Potassium Level 4.3 3.6-5.0 MMOL/L Prothrombin Time 13.4 12.2-14.7 SEC Red Blood Count 4.00 L 4.35-5.85 10^6/uL Red Cell Distribution Width 13.3 10.0-14.5 % Sodium Level 140 135-145 MMOL/L Total Bilirubin 0.5 0.1-1.0 MG/DL Total Protein 6.9 6.4-8.2 G/DL Troponin I 0.79 *H <0.30 NG/ML White Blood Count 8.6 4.3-11.0 10^3/uL Physical Exam Vital Signs Vital Sign - Last 12Hours 12/27/16 14:26 Temp 100.0 Pulse 92 Resp 18 B/P 160/90 Pulse Ox 95 O2 Delivery Room Air O2 Flow Rate 2 Capillary Refill : Less Than 3 Seconds General Appearance: WD/WN Moderate Distress Eyes: Bilateral Eye EOMI, Bilateral Eye Normal Inspection, Bilateral Eye PERRL HEENT: PERRL/EOMI TMs Normal Normal ENT Inspection Pharynx Normal Neck: Full Range of Motion Normal Inspection Non Tender Supple Carotid Bruit Respiratory: Chest Non Tender Lungs Clear Normal Breath Sounds No Accessory Muscle Use No Respiratory Distress Cardiovascular: Regular Rate, Rhythm No Edema No JVD Normal Peripheral Pulses Systolic Murmur Gallop/S3 Gastrointestinal: Normal Bowel Sounds No Organomegaly No Pulsatile Mass Non Tender Soft Back: Normal Inspection No CVA Tenderness No Vertebral Tenderness Extremity: Normal Capillary Refill Normal Inspection Normal Range of Motion Non Tender No Calf Tenderness No Pedal Edema Neurologic/Psychiatric: Alert Oriented x3 No Motor/Sensory Deficits Normal Mood/Affect Skin: Normal Color Warm/Dry Lymphatic: No Adenopathy A/P-Cardiology Admission Diagnosis Non-ST elevation myocardial infarction Coronary artery disease Hypertension Peripheral arterial disease Assessment/Plan Non-ST elevation myocardial infarction, she will be brought for emergency cardiac catheterization she was given aspirin, I will restart her home medication, decision regarding treatment will follow Coronary artery disease, history of CABG 4, multiple interventions in the past. I am planning to proceed with emergency cardiac catheterization. Hypertension, restart home medication monitor blood pressure Hyperlipidemia, restart home medication monitor lipids Peripheral arterial disease, history of subclavian stenosis, history of balloon angioplasty and stenting of the left subclavian artery Diabetes mellitus, followed and managed by primary care physician History of tobaccoism, patient stopped smoking Clinical Quality Measures AMI/AHF: ASA po Prior to arrival: JEMIMA Morales MD Dec 27, 2016 15:49
--- NOTE | 2016-12-27 15:53 | Cardiac Procedure Note-CS/ASA ---
Pre-Procedure Note Pre-Op Procedure Note H&P Reviewed The H&P was reviewed, patient examined and no changes noted. Date H&P Reviewed: Dec 27, 2016 Time H&P Reviewed: 15:52 Conscious Sedation Pre-Proced Time Reviewed: 15:52 ASA Class: 3 Airway Mallampati Classification: (coquille appropriate class) I. II. III, IV Lungs Heart ASA score ASA 1: a normal healthy patient ASA 2: a patient with a mild systemic disease (mid diabetes, controlled hypertension, obesity x ASA 3: a patient with a severe systemic disease that limits activity (angina , COPD, prior Myocardial infarction) ASA 4: a patient with an incapacitating disease that is a constant threat to life (CHF, renal failure) ASA 5: a moribund patient not expected to survive 24 hrs. (ruptured aneurysm) ASA 6: a declared brain patient whose organs are being harvested. For emergent operations, add the letter E after the classification Grade 3 Sedation Plan: Analgesia, Amnesia, Plan communicated to team members, Discussed options with patient/fam, Discussed risks with patient/fam Note The patient is an appropriate candidate to undergo the planned procedure, sedation, and anesthesia. The patient immediately re-assessed prior to indication. JEMIMA DOMINGUEZ MD Dec 27, 2016 3:53 pm
[2016-12-27] MEDS ORDERED: HEParin 1000 UNIT/ML (10ML VIAL) FOR BOLUS ONE (16:21)
[2016-12-27] MEDS ORDERED: EPTIFIBATIDE BOLUS 20 ML IV ONE (16:28)
[2016-12-27] MEDS ORDERED: NS (IVPB) 250 ML ONE (16:46)
[2016-12-27] MEDS ORDERED: niCARdipine 25 MG/10 ML (CARDENE) AMP IV ONE (16:46)
[2016-12-27] MEDS ORDERED: NITROGLYCERIN DRIP 25 MG/D5W 250 ML IV ONE (17:02)
[2016-12-27] MEDS ORDERED: CLOPIDOGREL 300 MG (PLAVIX) TABLET PO ONE (17:43)
[2016-12-27] MEDS ORDERED: PATIENT MAY USE OWN MEDS, ALL PO SCH (17:45)
[2016-12-27] MEDS ORDERED: NS IV 1000 ML 1,000 ML IV SCH (17:45)
[2016-12-27] MEDS ORDERED: PANTOPRAZOLE 40 MG (PROTONIX) TAB PO SCH (18:00)
[2016-12-27 19:00] VITALS: BP 162/89
[2016-12-27 20:00] VITALS: BP 153/70
[2016-12-27 21:00] VITALS: BP 137/56
[2016-12-27 22:00] VITALS: BP 144/65
[2016-12-27 23:00] VITALS: BP 144/68
[2016-12-27] MEDS: ASPIRIN E.C. 81 MG (ECOTRIN) TAB PO SCH (23:05)
[2016-12-27] MEDS: ATORVASTATIN 80 MG (LIPITOR) TABLET PO SCH (23:05)
[2016-12-28] VITALS (10 sets, daily range): BP systolic 113–154; BP diastolic 40–85
[2016-12-28 04:14] LABS: MEAN PLATELET VOLUME 9.7 FL (7.4-10.4); RED BLOOD COUNT 3.67 10^6/uL (4.35-5.85); RED CELL DISTRIBUTION WIDTH 13.5 % (10.0-14.5); WHITE BLOOD COUNT 7.3 10^3/uL (4.3-11.0)
[2016-12-28 04:44] LABS: ANION GAP 11 MMOL/L (5-14); BLOOD UREA NITROGEN 14 MG/DL (7-18); BUN/CREATININE RATIO 17; CALCIUM 8.7 MG/DL (8.5-10.1); CARBON DIOXIDE 23 MMOL/L (21-32); CHLORIDE 103 MMOL/L (98-107); CHOLESTEROL 147 MG/DL (< 200); CREATININE SERUM 0.81 MG/DL (0.60-1.30); DIRECT LDL 77 MG/DL (1-129); GFR ESTIMATED > 60; GLUCOSE 158 MG/DL (70-105); POTASSIUM 4.1 MMOL/L (3.6-5.0); SODIUM 137 MMOL/L (135-145); TRIGLYCERIDES 109 MG/DL (<150); VLDL CHOLESTEROL 22 MG/DL (5-40)
--- NOTE | 2016-12-28 08:09 | Cardiology Progress Note ---
Subjective Subjective/Events-last exam patient is sitting in bed, feeling better, no chest pain or shortness of breath. No palpitation Review of Systems General: No Chills, No Night Sweats, No Fatigue, No Malaise, No Appetite, No Other HEENT: No Head Aches, No Visual Changes, No Eye Pain, No Ear Pain, No Dysphasia , No Sinus Congestion, No Post Nasal Drip, No Sore Throat, No Other Pulmonary: No Dyspnea, No Cough, No Pleuritic Chest Pain, No Other Cardiovascular: No: Chest Pain, Edema, Lt Headedness, Orthopnea, Other, Palpitations, Paroxysmal Noc. Dyspnea Objective-Cardiology Exam Last Set of Vital Signs Vital Signs 12/27/16 12/28/16 18:30 06:00 Pulse 87 Resp 15 B/P 119/40 Pulse Ox 93 O2 Delivery Room Air O2 Flow Rate 2.00 Capillary Refill : Less Than 3 Seconds I&O Intake and Output 12/28/16 00:00 Intake Total 0 ml Balance 0 ml Intake Oral 0 ml # Voids 3 General: Alert, Oriented X3, Cooperative HEENT: Atraumatic, PERRLA Neck: Supple, No JVD, No Thyromegaly Lungs: Clear to Auscultation, Normal Air Movement Heart: Regular Rate, Normal S1, Normal S2, No Murmurs Abdomen: Normal Bowel Sounds, Soft, No Tenderness, No Hepatosplenomegaly, No Masses Extremities: No Clubbing, No Cyanosis, No Edema, Normal Pulses, No Tenderness/ Swelling Skin: No Rashes, No Breakdown, No Significant Lesion Neuro: Normal Gait, Normal Speech, Strength at 5/5 X4 Ext, Normal Tone, Sensation Intact Psych/Mental Status: Mental Status NL, Mood NL Results Lab Laboratory Tests 12/27/16 14:43 12/28/16 03:46 A/P-Cardiology Admission Diagnosis Non-ST elevation myocardial infarction Coronary artery disease Hypertension Peripheral arterial disease Assessment/Plan Non-ST elevation myocardial infarction, status post emergency cardiac catheterization with stent to the vein graft to the right coronary artery. Continue current medications Coronary artery disease, history of CABG 4, multiple interventions in the past , cardiac catheterization showed free HOPKINS, occluded LAD getting filled by collateral, patent stents extending from the left main to the first diagonal branch, patent stents extending from the proximal left circumflex to the first obtuse marginal branch, patent vein graft to the second obtuse marginal branch, occluded vein graft to the right coronary artery that is a dominant artery, heavy clot burden, successful complex intervention with 2 stent deployment using Xience Alpine 3.533 and 3.515 mm with excellent results. Continue on aspirin and Plavix Congestive heart failure, chronic compensated left ventricular systolic dysfunction, ischemic cardiomyopathy, ejection fraction 25-30 percent, continue on beta blockers and Harry inhibitors, monitor renal function closely. Hypertension, restart home medication monitor blood pressure, will bring all medications today Hyperlipidemia, restart home medication monitor lipids Peripheral arterial disease, history of subclavian stenosis, history of balloon angioplasty and stenting of the left subclavian artery Diabetes mellitus, followed and managed by primary care physician History of tobaccoism, patient stopped smoking Clinical Quality Measures AMI/AHF: ASA po Prior to arrival: JEMIMA Morales MD Dec 28, 2016 08:09
[2016-12-28] MEDS ORDERED: lisINopril 10 MG (PRINIVIL) TAB PO SCH (09:00)
[2016-12-28] MEDS ORDERED: DIPH25CA79 PO ×2 (09:22)
[2016-12-28] MEDS ORDERED: UBID1CAP53 PO ×2 (09:22)
[2016-12-28] MEDS ORDERED: AMLO5TAB2 PO ×2 (09:22)
[2016-12-28] MEDS ORDERED: LISI-552 PO ×2 (09:22)
[2016-12-28] MEDS: OMEGA 3 (FISH OIL) 1000 MG CAP PO SCH ×2 (10:14→17:00)
[2016-12-28] MEDS: LEVOTHYROXINE 50 MCG (LEVOTHROID) TAB PO SCH (10:14)
[2016-12-28] MEDS: CLOPIDOGREL 75 MG (PLAVIX) TABLET PO SCH (10:14)
[2016-12-28] MEDS: PANTOPRAZOLE 40 MG (PROTONIX) TAB PO SCH (10:14)
--- NOTE | 2016-12-28 12:02 | CARDIAC CATHETERIZATION ---
PROCEDURE PHYSICIAN: JEMIMA DOMINGUEZ REFERRING PHYSICIAN: Dr. Milian DATE OF PROCEDURE: 12/27/2016 BRIEF HISTORY: Mrs. Hernandez is an 86-year-old lady with extensive coronary artery disease, multiple intervention in the past. She started having acute chest pain for the last 24 hours went to her PMDs office who sent her to the emergency room. The patient was having active chest pain, had EKG changes with ST depression in at the anterior lead, slight ST elevation with Q waves in lead III. The patient was noted to have elevated troponin level and having active chest pain. She was brought for emergency cardiac catheterization. PROCEDURE NOTE: After explaining the procedure to the patient, all pros and cons were explained. All questions were answered. The patient signed a consent, then she was placed on the cardiac catheterization laboratory. The right groin was prepped in a sterile fashion. Local anesthesia applied to the right groin. 6-Prydeinig sheath was placed in the right femoral artery. A combination of right and left Tuan catheter were used to access the right and left coronary system. Multiple views were obtained. Tuan right catheter was used to access the vein graft, 3 vein grafts were evaluated. Then with difficulties I was able to intubate the left subclavian artery. The patient is known to have a stent in the subclavian artery, an angiogram to the left subclavian artery was done. Then a pigtail catheter was advanced to the left ventricular cavity. Left ventriculogram was done. Pullback LV to aorta was done. At that point I decided to proceed with percutaneous intervention. The patient was given 5000 units of heparin. FR guide was advanced to the vein graft to the right coronary artery that was totally occluded. BMW wire advanced through the vein graft with difficulties and parked distally. Then I advanced distal FilterWire 3.5-5.5 mm, parked distally and then over the BMW wire, I used an Emerge balloon 3 x 20 mm. Multiple inflations within the vein graft was made. No flow was established. I advanced to an Xpress-way extraction, catheter and did a thrombectomy. Then there was sluggish flow in the vein graft. I proceeded with balloon angioplasty again and then I placed an Xience Alpine 3.5 x 33 mm overlapping with the old stent that was 4 mm. Deployed, then I advance a 4-0 x 20 balloon and expanded at the overlap area. Angiogram showed still clot in the distal vein graft. I advanced a second balloon Xience Alpine 3.5 x 15 mm overlapping with the previous stent, deployed. Angiogram showed significant improvement of the vein graft, then thrombus noted in the small branches. The patient had thrombus in the PDA and PLV and a small branch. I used an Emerge balloon 2.0 x 15 mm, advanced it in the PDA, inflated twice then redirected the wire to the PLV and balloon, the posterior lateral branch, then the second posterior lateral branch was also dilated. Angiogram showed excellent results. Small thrombus in one PLV branch was still present. At that point I removed the sheath and Mynx device deployed. Hemostasis achieved. The patient received heparin total of 8000 units. Her ACT was 205 and received 2 boluses of Integrilin. FINDINGS: HEMODYNAMICS: LV pressure 162/19, end-diastolic pressure of 19, aortic pressure 137/15, mean of 78. ANATOMY: 1. Left main coronary artery is bifurcating into left anterior descending and left circumflex artery, no obstructive disease. 2. The left anterior descending artery - proximally there is a stent extending from the left main into the proximal LAD then to a diagonal branch. The jena LAD is totally occluded at its midportion, getting filled by collaterals. The vein graft to the LAD is known to be occluded chronically. 3. Left circumflex artery: The left circumflex artery has an ostial stent extending to the first obtuse marginal branch with good flow. There is a vein graft to the second obtuse marginal branch that had a stent that is patent. 4. Right coronary artery is totally occluded proximally with totally occluded vein graft filled with thrombus, complex intervention using protection device Sanford catheter balloon angioplasty, then deployment of 2 overlapping stents Xience Alpine 3.5 x 33 mm and 3.5 x 15 mm. The proximal portion of the stent is overlapping with an old stent, expanded to 4.25 mm. The distal portion was 3.65 mm. Excellent results. Distally, balloon angioplasty for clot in the PDA and two PLV branches with excellent results. 5. Left subclavian artery angiogram: The left subclavian artery was intubated with a Tuan right catheter angiogram was done in 2 views showing mild in-stent restenosis with patent subclavian artery. 6. Left ventriculogram was done the right anterior oblique position. The left ventricle is dilated. Anterior wall is hypokinetic, inferior wall is akinetic. Estimated ejection fraction 25%. CONCLUSION: 1. Non-ST elevation myocardial infarction with total occlusion of the vein graft to the right coronary artery. Successful complex intervention using multiple extraction catheter and protection device, then deployment of 2 overlapping stents Xience Alpine 3.5 x 33 mm and 3.5 x 15 mm overlapping with the previously deployed 4.0 stent; the current stents were expanded proximally to 4.25 and distally 3.65 with excellent results. Balloon angioplasty for small clots in the PDA and PLV branches with excellent results. 2. Totally occluded mid LAD, reconstructed by collaterals. The stent extending from the left main into the LAD. Into the first diagonal branch is patent with good flow in the distal diagonal branch. 3. Patent stent in the proximal circumflex extending into the first obtuse marginal branch with good flow distally. 4. Patent vein graft to the second obtuse marginal branch. 5. Dilated left ventricle with hypokinesia at the anterior wall, akinesia the inferior wall. Estimated ejection fraction 25%. DISCUSSION AND RECOMMENDATION: I will continue maximizing medical therapy, the patient was bolused with aspirin and Plavix I will start Lipitor 80 mg daily, fish oil daily. Further recommendation will follow based on her progression. Job ID: [id number] Dictated Date: 12/27/2016 17:58:23 Head Host/Hostess Date: 12/28/2016 11:43:49 / rika
[2016-12-28] MEDS: amLODIPine 5 MG (NORVASC) TAB PO SCH (13:44)
[2016-12-28] MEDS: ATORVASTATIN 80 MG (LIPITOR) TABLET PO SCH (21:07)
[2016-12-28] MEDS: ASPIRIN E.C. 81 MG (ECOTRIN) TAB PO SCH (21:07)
[2016-12-29] VITALS: BP 112/72
[2016-12-29 04:22] VITALS: BP 118/68
[2016-12-29] MEDS: LEVOTHYROXINE 50 MCG (LEVOTHROID) TAB PO SCH (06:12)
[2016-12-29 08:18] VITALS: BP 121/71
[2016-12-29] MEDS: CLOPIDOGREL 75 MG (PLAVIX) TABLET PO SCH (08:22)
[2016-12-29] MEDS: amLODIPine 5 MG (NORVASC) TAB PO SCH (08:22)
[2016-12-29] MEDS: PANTOPRAZOLE 40 MG (PROTONIX) TAB PO SCH (08:24)
[2016-12-29] MEDS: OMEGA 3 (FISH OIL) 1000 MG CAP PO SCH (08:24)
--- NOTE | 2016-12-29 08:43 | ECHOCARDIOGRAPHY REPORT ---
PROCEDURE PHYSICIAN: JEMIMA DOMINGUEZ DATE OF PROCEDURE: 12/28/2016 TWO DIMENSIONAL ECHOCARDIOGRAM REPORT PRIMARY PHYSICIAN: OTHER PHYSICIAN: REFERRING PHYSICIAN: [facility] ORDERING PHYSICIAN: INDICATION FOR THE PROCEDURE: Acute myocardial infarction. MEASUREMENTS DERIVED VALUES LV DIAMETER (LAX) NORMALS NORMALS Diastolic 5.7 (3.6-5.2) Eject. Fract. 30% (60%+/-6%) Systolic (2.3-3.9) Diastolic Vol. % Shortening (0.22-0.42) Systolic Vol. Aortic Root IVS THICKNESS Diastolic 1.3 (0.6-1.1) LVPW THICKNESS Diastolic 1.3 (0.6-1.1) LA DIAMETER Systolic 4.1 (2.1-3.7) FINDINGS: 1. The left ventricle is dilated with moderate left ventricular hypertrophy noted diffusely. Severe diffuse left ventricular hypokinesia was noted, akinesia of the anterior wall, anterior septum. Estimated ejection fraction 30%. 2. The left atrium is dilated. No clot or thrombus were seen within the left atrium. 3. The right atrium and right ventricle are normal in size. No clot or thrombus were seen within the right side. 4. Mitral valve is calcified with moderate mitral regurgitation noted by color Doppler flow. No mitral valve prolapse. No mitral valve stenosis. 5. Aortic valve is calcified, trileaflet with normal opening and closing pattern. No significant aortic valve stenosis was noted. Doppler across the aortic valve estimated the peak gradient of 16 mmHg, mean gradient of 11 mmHg. 6. Tricuspid valve is normal in morphology with mild tricuspid regurgitation noted by color Doppler flow. Doppler across tricuspid valve estimated pulmonary artery pressure of 30+ right atrial pressure. 7. Pulmonic valve is functioning normally. 8. No pericardial effusion. IN CONCLUSION: 1. Moderate left ventricular hypertrophy with prominent left ventricle and moderate to severe diffuse left ventricular hypokinesia. Akinesia the anterior wall and anterior septum. Systolic function is reduced. Estimated ejection fraction 30%. 2. Left atrial dilatation. 3. Moderate mitral regurgitation, mild tricuspid regurgitation. 4. Aortic valve sclerosis. No aortic stenosis. 5. Estimated pulmonary artery pressure 40 mmHg. Job ID: [id number] Dictated Date: 12/29/2016 08:02:32 Sales Training Coordinator Date: 12/29/2016 08:39:02 / valeri
[2016-12-29] MEDS ORDERED: lisINopril 20 MG (ZESTRIL) TAB PO SCH (09:00)
--- NOTE | 2016-12-29 09:04 | Cardiology Discharge Summary ---
Diagnosis/Chief Complaint Date of Admission Date of Discharge Admission Diagnosis Non-ST elevation myocardial infarction Coronary artery disease Hypertension Peripheral arterial disease Discharge Diagnosis non-ST elevation myocardial infarction coronary artery disease congestive heart failure, chronic left ventricular systolic dysfunction, ischemic cardiomyopathy, ejection fraction 30 percent Hypertension Hyperlipidemia Chief Complaint/HPI Chief Complaint/HPI 86-year-old lady with extensive history of coronary artery disease, had history of CABG 4, multiple interventions in the past. Last workup was done in 2014. She was seen and followed by Dr. Sue, no further follow-up since he left our area. She was doing well until yesterday when she started having chest pain , continue to have waxing and waning recurrent chest pain. Shortness of breath. No palpitation, no syncope or near syncopal episodes. Came in to the emergency room with EKG changes and elevated troponin. During my evaluation patient was having active chest pain Patient underwent cardiac catheterization with excellent results, angioplasty and stenting to the vein graft with good results. feeling better today. Planning for discharge Discharge Summary Hospital Course Hospital Course Non-ST elevation myocardial infarction, status post emergency cardiac catheterization with stent to the vein graft to the right coronary artery. Continue current medications Coronary artery disease, history of CABG 4, multiple interventions in the past , cardiac catheterization showed free HOPKINS, occluded LAD getting filled by collateral, patent stents extending from the left main to the first diagonal branch, patent stents extending from the proximal left circumflex to the first obtuse marginal branch, patent vein graft to the second obtuse marginal branch, occluded vein graft to the right coronary artery that is a dominant artery, heavy clot burden, successful complex intervention with 2 stent deployment using Xience Alpine 3.533 and 3.515 mm with excellent results. Continue on aspirin and Plavix, anterior wall is akinetic on echo, planning to evaluate resting and redistribution study for possible intervention on the occluded LAD or bypass to the LAD Congestive heart failure, chronic compensated left ventricular systolic dysfunction, ischemic cardiomyopathy, Echocardiogram showed diffuse left ventricular hypokinesia, akinesia of the anterior wall and anterior septum, ischemic cardiomyopathy, continue with beta blockers and Harry inhibitors. Monitor closely, evaluate viability study of the anterior wall for possible bypass or high risk intervention to the LAD Hypertension, continue on current medications and monitor Hyperlipidemia, continue on high-dose statin Peripheral arterial disease, history of subclavian stenosis, history of balloon angioplasty and stenting of the left subclavian artery Diabetes mellitus, followed and managed by primary care physician History of tobaccoism, patient stopped smoking Labs Laboratory Tests 12/27/16 14:43: Glucose Level 158H, Lymphocytes # (Auto) 0.9L, Lymphocytes (%) (Auto) 10L, Neutrophils (%) (Auto) 78H, Red Blood Count 4.00L, Troponin I 0.79*H 12/28/16 03:46: Glucose Level 158H, Red Blood Count 3.67L, Troponin I 1.47*H, Hematocrit 34L, Hemoglobin 11.3L Procedures None. Discharge Physical Examination Allergies: Coded Allergies: codeine (Verified Allergy, Unknown, 03/30/15) Uncoded Allergies: FLU VAC (Allergy, Severe, 12/27/16) Vitals & I&Os Vital Signs Date Time Temp Pulse Resp B/P Pulse Ox O2 Delivery O2 Flow Rate FiO2 12/29/16 08:18 98.2 85 18 121/71 94 Room Air 12/27/16 18:30 2.00 General Appearance: Alert, Oriented X3, Cooperative, No Acute Distress HEENT: Atraumatic, PERRLA Respiratory: Clear to Auscultation, Normal Air Movement Cardiovascular: Regular Rate, Normal S1, Normal S2, No Murmurs, Gallops Abdominal: Normal Bowel Sounds, Soft, No Tenderness, No Hepatosplenomegaly, No Masses Extremities: No Clubbing, No Cyanosis, No Edema, Normal Pulses, No Tenderness/ Swelling Skin: No Rashes, No Breakdown, No Significant Lesion Neuro: Normal Gait, Normal Speech, Strength at 5/5 X4 Ext, Normal Tone, Sensation Intact, Cranial Nerves 3-12 NL, Reflexes 2+ Psych/Mental Status: Mental Status NL, Mood NL Discharge Home Medications Reviewed and agree with Discharge Medication list on patient's Discharge Instruction sheet Instructions to Patient/Family Please see electonic discharge instructions given to patient. Clinical Quality Measures AMI/AHF: ASA po Prior to arrival: No DVT/VTE Risk/Contraindication: Risk Factor Score Per Nursin RFS Level Per Nursing on Admit: 4+=Very High JEMIMA DOMINGUEZ MD Dec 29, 2016 09:04
[2016-12-29] MEDS ORDERED: OMG1KC PO ×2 (09:06)
[2016-12-29] MEDS ORDERED: ATOR80TA76 PO ×2 (09:06)
--- NOTE | 2016-12-29 09:06 | Discharge Inst-Post CATH ---
Discharge Inst-CATH Post Cardiac Cath D/C Inst Follow Up/Plan Appointment with Dr. Diaz's office in 2 weeks CARDIAC CATH DISCHARGE INSTRUCTIONS *Hold Metformin for 48 hours post heart cath. ACTIVITY * Go Home directly and rest. * Limit activity of the leg (or wrist if it was used) for 7 days including aerobics, swimming, jogging, bicycling, etc. * Restrict stair-climbing for 7 days if possible, if not, climb up with your non -cath leg, then bring together on the same step. * Avoid lifting, pushing, pulling or excessive movement of the affected extremity for 7 days. * Customary sexual activity may be resumed after 2 days-use caution not to use a position that strains or causes pain to the affected extremity. * No driving for 24 hours. * NO SMOKING. * Avoid straining for bowel movements for 7 days. * Gentle walking on level ground is allowed. * Returning to work will depend on the type of procedure and the results. Your doctor will discuss this with you. CALL YOUR DOCTOR FOR ANY OF THE FOLLOWING: *If bleeding from the puncture site occurs- Apply gentle pressure to site with clean cloth and call your doctor or EMS. * If a knot or lump forms under the skin, increases in size, or causes pain. * If bruising appears to be worsening or moving further down your leg instead of disappearing. * Temperature above 101 F. CARE OF YOUR GROIN INCISION; * Bruising or purple discoloration of the skin near the puncture site is common. * You may shower only, no bathtub bathing for 5 days. Be careful to avoid slipping as your leg may feel stiff. * If a closure device was used on your femoral artery, please see the attached guide regarding care of the device and your leg. * REMOVE the dressing from your groin the next day after your procedure in the shower. CARE OF YOUR WRIST INCISION; * Bruising or purple discoloration of the skin near the puncture site is common. * You may shower. * DO NOT submerge wrist. * Remove dressing in 24 hours. JEMIMA DIAZ MD Dec 29, 2016 09:06
--- OUTSIDE RECORDS SUMMARY | 2016-12-29 15:09 | XMS REPORT | Continuity of Care Document ---
Author Author [facility] Organization [facility] Address Unknown Phone Unavailable Care Team Providers Care Lockstitcher Name Role Phone MARYBETH PAUL MD PCP Insurance Providers Payer Name Policy Number Subscriber Name Relationship Wps Medicare [id number] Nasima Tolbert 20 Self / Same As Patient Advance Directives Directive Response Recorded Date/Time Advance Directives Yes 03/30/15 2:15pm Health Care Power of Animal Cytologist Y Mitesh 03/30/15 2:15pm Organ Donor Yes [...] Referrals TRACEY HOPKINS MD (Unspecified) 04/16/15 Address: [address] [place] [address] [id number] Reason(s) for Referral: APRIL 16, 2015 AT 3:00 P.M. MARYBETH PAUL MD (Unspecified) 04/18/15 Address: [address] [place] [address] [id number] Reason(s) for Referral: APRIL 18, 2015 AT [...] F (97.6 - 99.5) Temperature (Calculated Celsius) 37.07787 degrees C (36.4 - 37.5) Temperature Source Temporal Pulse Rate (adult) 89 bpm (60 - 90) Respiratory Rate 20 bpm (12 - 24) O2 Sat by Pulse Oximetry 93 % (88 - 100) Blood Pressure 145/75 mm Hg Pain Pain Intensity 0 Height (Feet) 5 feet Height (Inches) 5.00 inches Height (Calculated Centimeters) 165.215311 cm Weight (Pounds) 174 pounds Weight (Ounces) 1.0 oz Weight (Calculated Grams) 53650.423 gm Weight (Calculated Kilograms) 78.334469 kilograms Calculated BMI 24.96 Results Laboratory Results [...] SELECTED GROUPS OF HIGH RISK PATIENTS. [employer] CONSENSUS CONFERENCE ON [...] Encounters Encounter Location Date/Time Admitted Inpatient Via [facility] 03/30/15 12:54pm
== END 2016-12-29 09:55 | disposition home or self-care (01) | DRG 246 ==
LOC: EDUNIT# 14:26 → ER 14:27 → CATH 15:24 → ICU 15:24 → CATH 18:05 → ICU 18:05 → UNDOFXSDCACCOM 12-28 17:42 → UNDOFXSDCRRACCOM 12-28 17:42 → UNDOFXSDCSVC 12-28 17:42 → ICU 12-29 09:55 → CATH 12-29 09:55
PROVIDERS: ADMIT Internal Medicine Cardiovascular Disease; ATTEND Internal Medicine Cardiovascular Disease
PROC: 027035Z Dilation of Coronary Artery, One Artery with Two Drug-eluting Intraluminal Devices, Percutaneous Approach (ICD-10-PCS; principal; 2016-12-27)
PROC: 02713ZZ Dilation of Coronary Artery, Two Arteries, Percutaneous Approach (ICD-10-PCS; 2016-12-27)
PROC: 02C03ZZ Extirpation of Matter from Coronary Artery, One Artery, Percutaneous Approach (ICD-10-PCS; 2016-12-27)
PROC: 4A023N7 Measurement of Cardiac Sampling and Pressure, Left Heart, Percutaneous Approach (ICD-10-PCS; 2016-12-27)
PROC: B2151ZZ Fluoroscopy of Left Heart using Low Osmolar Contrast (ICD-10-PCS; 2016-12-27)
PROC: B2111ZZ Fluoroscopy of Multiple Coronary Arteries using Low Osmolar Contrast (ICD-10-PCS; 2016-12-27)
PROC: B2131ZZ Fluoroscopy of Multiple Coronary Artery Bypass Grafts using Low Osmolar Contrast (ICD-10-PCS; 2016-12-27)
PROC: B3121ZZ Fluoroscopy of Left Subclavian Artery using Low Osmolar Contrast (ICD-10-PCS; 2016-12-27)
DX: T82.868A Thrombosis due to vascular prosthetic devices, implants and grafts, initial encounter (principal); I21.4 Non-ST elevation (NSTEMI) myocardial infarction; I25.10 Atherosclerotic heart disease of native coronary artery without angina pectoris; I11.0 Hypertensive heart disease with heart failure; I50.22 Chronic systolic (congestive) heart failure; I25.5 Ischemic cardiomyopathy; E78.5 Hyperlipidemia, unspecified; I73.9 Peripheral vascular disease, unspecified; E11.9 Type 2 diabetes mellitus without complications; E03.9 Hypothyroidism, unspecified; K21.9 Gastro-esophageal reflux disease without esophagitis; Z87.891 Personal history of nicotine dependence
CPT/HCPCS: 36415; 71020; 80048; 80053; 80061; 83690; 83735; 83874; 84484; 85025; 85027; 85347; 85379; 85610; 85730; 93005; 93041; 93306; 93459; 96374

== ENCOUNTER → 2016-12-30 | Outpatient (CLI) | payer MEDICARE ==
[~2016-12-30] MED LIST changes: +ATOR80TA76 PO; +CATHETER FLUSH 10 ML SYR IV PRN; +DIPH25CA79 PO; +LEVO50TA6; +LISI-552 PO; +OMG1KC PO; +UBID1CAP53 PO
--- OUTSIDE RECORDS SUMMARY | 2016-12-30 13:43 | XMS REPORT | Continuity of Care Document ---
Author Author [facility] Organization [facility] Address Unknown Phone Unavailable Care Team Providers Care Residential Plumber Name Role Phone MARYBETH PAUL MD PCP Insurance Providers Payer Name Policy Number Subscriber Name Relationship Wps Medicare [id number] Nasima Tolbert 18 Self / Same As Patient Advance Directives Directive Response Recorded Date/Time Advance Directives Yes 03/30/15 2:15pm Health Care Power of Wildlife Removal Specialist Y Mitesh 03/30/15 2:15pm Organ Donor Yes [...] Referrals TRACEY HOPKINS MD (Unspecified) 04/16/15 Address: [address] [place] [address] [id number] Reason(s) for Referral: APRIL 16, 2015 AT 3:00 P.M. MARYBETH PAUL MD (Unspecified) 04/18/15 Address: [address] [place] [address] [id number] Reason(s) for Referral: APRIL 18, 2015 AT [...] F (97.6 - 99.5) Temperature (Calculated Celsius) 37.70865 degrees C (36.4 - 37.5) Temperature Source Temporal Pulse Rate (adult) 89 bpm (60 - 90) Respiratory Rate 20 bpm (12 - 24) O2 Sat by Pulse Oximetry 93 % (88 - 100) Blood Pressure 145/75 mm Hg Pain Pain Intensity 0 Height (Feet) 5 feet Height (Inches) 5.00 inches Height (Calculated Centimeters) 165.469668 cm Weight (Pounds) 174 pounds Weight (Ounces) 1.0 oz Weight (Calculated Grams) 65395.423 gm Weight (Calculated Kilograms) 78.194091 kilograms Calculated BMI 24.96 Results Laboratory Results [...] SELECTED GROUPS OF HIGH RISK PATIENTS. [employer] [employer] CONSENSUS CONFERENCE ON [...] Encounters Encounter Location Date/Time Admitted Inpatient Via [facility] [address] 03/30/15 12:54pm
--- NOTE | 2017-01-03 12:15 | PROCEDURE REPORT ---
PROCEDURE PHYSICIAN: JEMIMA DOMINGUEZ DATE OF PROCEDURE: 01/03/2017 RESTING AND 24 HOUR REDISTRIBUTION STUDY: IN SUMMARY: The patient was injected with 3.08 mCi of thallium-201 and the resting images were obtained. Then returned 24 hour later, received an additional injection of 1.01 mCi of thallium-201 and the redistribution study acquired. The resting and redistribution study was reviewed. It showed decreased uptake involving the inferior wall with significant reversibility. Mild decreased uptake at the anterior wall, anteroapical segment, with significant reversibility. IN CONCLUSION: Viable myocardium involving the anterior wall, anteroapical segment and inferior wall. Job ID: [id number] Dictated Date: 01/03/2017 11:53:26 South Asian History Professor Date: 01/03/2017 12:13:05 / valeri
== END ==
LOC: CARD 13:39
PROVIDERS: ATTEND Internal Medicine Cardiovascular Disease
DX: I50.9 Heart failure, unspecified (principal); I25.10 Atherosclerotic heart disease of native coronary artery without angina pectoris
CPT/HCPCS: 78452; 93017

== ENCOUNTER 2017-04-18 10:02 | Outpatient (RCR) | payer MEDICARE, OTHER ==
--- OUTSIDE RECORDS SUMMARY | 2017-01-24 09:05 | XMS REPORT | Continuity of Care Document ---
Author Author [facility] Organization [facility] Address Unknown Phone Unavailable Care Team Providers Care Software Installer Name Role Phone MARYBETH PAUL MD PCP Insurance Providers Payer Name Policy Number Subscriber Name Relationship Wps Medicare [id number] Nasima Tolbert 18 Self / Same As Patient Advance Directives Directive Response Recorded Date/Time Advance Directives Yes 03/30/15 2:15pm Health Care Power of Mexican Food Maker Y Mitesh 03/30/15 2:15pm Organ Donor Yes [...] Referrals TRACEY HOPKINS MD (Unspecified) 04/16/15 Address: [address] [place] [address] [phone] Reason(s) for Referral: APRIL 16, 2015 AT 3:00 P.M. MARYBETH PAUL MD (Unspecified) 04/18/15 Address: [address] [place] [address] [phone] Reason(s) for Referral: APRIL 18, 2015 AT [...] F (97.6 - 99.5) Temperature (Calculated Celsius) 37.25784 degrees C (36.4 - 37.5) Temperature Source Temporal Pulse Rate (adult) 89 bpm (60 - 90) Respiratory Rate 20 bpm (12 - 24) O2 Sat by Pulse Oximetry 93 % (88 - 100) Blood Pressure 145/75 mm Hg Pain Pain Intensity 0 Height (Feet) 5 feet Height (Inches) 5.00 inches Height (Calculated Centimeters) 165.731633 cm Weight (Pounds) 174 pounds Weight (Ounces) 1.0 oz Weight (Calculated Grams) 87905.423 gm Weight (Calculated Kilograms) 78.858009 kilograms Calculated BMI 24.96 Results Laboratory Results [...] SELECTED GROUPS OF HIGH RISK PATIENTS. [employer] [place] [employer] CONSENSUS CONFERENCE ON [...] Encounters Encounter Location Date/Time Admitted Inpatient Via [facility] 03/30/15 12:54pm
[~2017-04-18 10:02] MED LIST changes: -CATHETER FLUSH 10 ML SYR IV PRN
== END 2017-04-24 | disposition home or self-care (01) ==
LOC: CR 10:02
PROVIDERS: ATTEND Internal Medicine Cardiovascular Disease
DX: Z51.89 Encounter for other specified aftercare (principal); I25.2 Old myocardial infarction; Z95.5 Presence of coronary angioplasty implant and graft
CPT/HCPCS: 93798

== ENCOUNTER 2017-05-06 08:38 | Outpatient (RCR) | payer MEDICARE, OTHER | END 2017-05-06 16:21 | disposition home or self-care (01) | LOC: CR 08:38 | PROVIDERS: ATTEND Internal Medicine Cardiovascular Disease | DX: Z51.89 Encounter for other specified aftercare (principal); I25.2 Old myocardial infarction; Z95.5 Presence of coronary angioplasty implant and graft | CPT/HCPCS: 93798 ==

== ENCOUNTER → 2017-09-29 | Outpatient (CLI) | payer MEDICARE ==
[2017-09-29 14:32] LABS: BASOPHILS % (AUTO) 1 % (0-10); EOSINOPHILS # (AUTO) 0.1 10^3/uL (0.0-0.3); EOSINOPHILS % (AUTO) 2 % (0-10); LYMPHOCYTES # (AUTO) 0.6 X 10^3 (1.0-4.0); LYMPHOCYTES % (AUTO) 12 % (12-44); MEAN CORPUSCULAR HEMOGLOBIN 32 PG (25-34); MEAN CORPUSCULAR HGB CONC 33 G/DL (32-36); MEAN CORPUSCULAR VOLUME 96 FL (80-99); MEAN PLATELET VOLUME 10.1 FL (7.4-10.4); MONOCYTES # (AUTO) 0.5 X 10^3 (0.0-1.0); MONOCYTES % (AUTO) 9 % (0-12); NEUTROPHILS % (AUTO) 77 % (42-75); PLATELET COUNT 226 10^3/uL (130-400); RED BLOOD COUNT 3.77 10^6/uL (4.35-5.85); RED CELL DISTRIBUTION WIDTH 13.7 % (10.0-14.5); WHITE BLOOD COUNT 5.2 10^3/uL (4.3-11.0)
[2017-09-29 14:33] LABS: ALANINE AMINOTRANSFERASE 29 U/L (0-55); ALBUMIN 3.9 GM/DL (3.2-4.5); ANION GAP 7 MMOL/L (5-14); ASPARTATE AMINO TRANSFERASE 27 U/L (5-34); BILIRUBIN,TOTAL 0.5 MG/DL (0.1-1.0); BLOOD UREA NITROGEN 15 MG/DL (7-18); BUN/CREATININE RATIO 17; CALCIUM 9.1 MG/DL (8.5-10.1); CARBON DIOXIDE 29 MMOL/L (21-32); CHLORIDE 105 MMOL/L (98-107); CREATININE SERUM 0.88 MG/DL (0.60-1.30); GFR ESTIMATED > 60; GLUCOSE 161 MG/DL (70-105); SODIUM 141 MMOL/L (135-145); TOTAL PROTEIN 6.6 GM/DL (6.4-8.2)
[2017-09-29 15:13] LABS: BAND NEUTROPHILS 3 %; BASOPHILS % (MANUAL) 0 %; EOSINOPHILS % (MANUAL) 1 %; LYMPHOCYTES % (MANUAL) 6 %; NEUTROPHILS % (MANUAL) 78 %; REACTIVE LYMPHOCYTES 6 %
[2017-09-29 15:14] LABS: POIKILOCYTOSIS SLIGHT; ROULEAUX SLIGHT
== END ==
LOC: LAB 13:52
PROVIDERS: ATTEND Physician Assistant
DX: R53.83 Other fatigue (principal)
CPT/HCPCS: 36415; 80053; 85007; 85027

== ENCOUNTER → 2017-11-03 | Outpatient (CLI) | payer MEDICARE | LOC: CARD 10:39 | PROVIDERS: ATTEND Internal Medicine Cardiovascular Disease | DX: I51.7 Cardiomegaly (principal); I25.10 Atherosclerotic heart disease of native coronary artery without angina pectoris; E03.9 Hypothyroidism, unspecified; I27.0 Primary pulmonary hypertension; I73.9 Peripheral vascular disease, unspecified | CPT/HCPCS: 93306 ==

== ENCOUNTER → 2018-05-19 | Outpatient (CLI) | payer MEDICARE | LOC: CARD 11:29 | PROVIDERS: ATTEND Internal Medicine Cardiovascular Disease | DX: I35.0 Nonrheumatic aortic (valve) stenosis (principal); I34.0 Nonrheumatic mitral (valve) insufficiency; I11.9 Hypertensive heart disease without heart failure; I51.7 Cardiomegaly; I25.10 Atherosclerotic heart disease of native coronary artery without angina pectoris; E78.5 Hyperlipidemia, unspecified | CPT/HCPCS: 93306 ==

== ENCOUNTER → 2019-08-14 | Outpatient (CLI) | payer MEDICARE ==
[~2019-08-14] MED LIST changes: +AMLO5TAB9 PO
--- NOTE | 2019-08-14 10:49 | Diagnostic Imaging Report ---
PROCEDURE: US carotid duplex, bilateral. TECHNIQUE: Multiple real-time grayscale images were obtained over the carotid arteries in various projections, bilaterally. Additional spectral analysis and color Doppler duplex images were also obtained. INDICATION: Aortic stenosis and coronary artery disease The previous carotid DOPPLER exam of 10/07/2015 noted extensive atherosclerotic plaque involving both carotid bifurcations. There also appears to be hemodynamically significant stenoses in the 60-79% range bilaterally. On this examination the atherosclerotic changes do not appear to be progressed. There still appears to be a 60-79% stenosis of the origin of the internal carotid artery on the right. However there is no hemodynamically significant stenosis of the internal carotid artery on the left. In reviewing the previous exam, I do not feel that there is a hemodynamically significant stenosis of the left internal carotid artery on the prior study. Both vertebral arteries were noted and there was antegrade flow bilaterally. IMPRESSION: The atherosclerotic disease involving the carotid systems does not appear to have progressed since the prior exam. There is still a stenosis in the 60-79% range of the internal carotid artery on the right but there is no evidence for a hemodynamically significant stenosis of the internal carotid artery on the left. Parameters based on the consensus panel Shahid-Scale and Doppler ultrasound criteria published September 2003, Radiology, Volume 229. DOPPLER (peak systolic velocity M/S Right Left CCA 1.22 1.81 ICA Proximal 3.29 2.41 ICA Mid 3.46 2.0 ICA Distal 2.0 1.76 RATIO 2.83 1.33 ECA 1.9 2.2 VERT 1.0 .61 Dictated by: Dictated on workstation # [id number]
== END ==
LOC: CARD 08:34
PROVIDERS: ATTEND Internal Medicine Interventional Cardiology
DX: I65.21 Occlusion and stenosis of right carotid artery (principal); I25.10 Atherosclerotic heart disease of native coronary artery without angina pectoris; I73.9 Peripheral vascular disease, unspecified; I77.1 Stricture of artery; I08.2 Rheumatic disorders of both aortic and tricuspid valves; E78.5 Hyperlipidemia, unspecified; I25.5 Ischemic cardiomyopathy
CPT/HCPCS: 93306; 93880

== ENCOUNTER → 2020-11-03 | Outpatient (CLI) | payer MEDICARE ==
[~2020-11-03] MED LIST changes: +AMLO-250 PO; -AMLO5TAB9 PO
== END ==
LOC: CARD 11:00
PROVIDERS: ATTEND Internal Medicine Cardiovascular Disease
DX: I27.29 Other secondary pulmonary hypertension (principal); I08.0 Rheumatic disorders of both mitral and aortic valves
CPT/HCPCS: 93306

== ENCOUNTER 2021-10-08 13:10 | Emergency (ER) | payer MEDICARE ==
[~2021-10-08] VITALS: Ht 165 cm; Wt 73.9 kg
[~2021-10-08 13:10] MED LIST changes: -LISI-552 PO; +LISI20TA26 PO
[2021-10-08] MEDS ORDERED: LACTATED RINGERS 1,000 ML IV STA (13:44)
[2021-10-08] MEDS ORDERED: ONDANSETRON 4 MG/2 ML (SDV) Z0FRAN IVP ONE (13:45)
--- NOTE | 2021-10-08 13:54 | ED GI ---
General Chief Complaint: Abdominal/GI Problems Stated Complaint: DIARRHEA/VOMITING Source of Information: Patient Exam Limitations: No Limitations History of Present Illness Date Seen by Provider: Oct 08, 2021 Time Seen by Provider: 13:35 Initial Comments Here with report of nausea, vomiting and diarrhea that has happened overnight an d throughout the day today. Persisted despite time. Denies significant pain. States that every time she vomits, she has diarrhea bowel movement. Denies fever chills. She is not vaccinated for Covid and does not take vaccine for influenza either due to severe adverse reaction to the flu vaccine. Timing/Duration: 12-24 Hours Severity/Quality: Moderate Location: Generalized Abdomen Radiation: No Radiation Activities at Onset: None Modifying Factors: Improves With Defecating; Worsens With Eating; Improves With Vomiting Associated Symptoms: No Back Pain, No Chest Pain, No Diaphoresis; Nausea/Vomiting; No Shortness of Air, No Swelling/Mass in Abdomen; Weakness Allergies and Home Medications Allergies Coded Allergies: codeine (Verified Allergy, Unknown, 03/30/15) Uncoded Allergies: FLU VAC (Allergy, Severe, 12/27/16) Patient Home Medication List Home Medication List Reviewed: Yes Amlodipine Besylate (Amlodipine Besylate) 5 Mg Tablet, 5 MG PO DAILY, (Reported) Entered as Reported by: MANUELITO VIEIRA on 12/28/16 09 Aspirin (Aspirin Ec Tab) 81 Mg Tabec, 81 MG PO 1800, (Reported) Entered as Reported by: MANUELITO VIEIRA on 05/01/15 1546 Atorvastatin Calcium (Atorvastatin Calcium) 80 Mg Tablet, 80 MG PO HS Prescribed by: JEMIMA DOMINGUEZ on 12/29/16 0906 Clopidogrel Bisulfate (Plavix 75 Mg) 75 Mg Tablet, 75 MG PO 1800, (Reported) Entered as Reported by: HAVEN ESQUEDA on 02/22/12 1405 Diphenhydramine HCl (Benadryl) 25 Mg Capsule, 25 MG PO 1800, (Reported) Entered as Reported by: MANUELITO VIEIRA on 12/28/16 0922 Levothyroxine Sodium (Levothyroxine 50 Mcg Tab) 50 Mcg Tablet, 50 MCG PO 1800, (Reported) Entered as Reported by: DANI MURGUIA on 03/30/15 1149 Lisinopril (Lisinopril) 20 Mg Tablet, 20 MG PO DAILY, (Reported) Entered as Reported by: MANUELITO VIEIRA on 12/28/16921 Metoprolol Succinate (Metoprolol Succinate Xl 25 Mg) 25 Mg Tab.sr.24h, 25 MG PO 1999, (Reported) Entered as Reported by: MANUELITO VIEIRA on 05/01/15 154 Multivitamins W-Minerals (Multivitamin With Minerals) 1 Each Tablet, 1 TAB PO DAILY, (Reported) Entered as Reported by: MANUELITO VIEIRA on 05/01/15 154 [place] 3 Polyunsat Fatty Acids (Fish Oil 1,000 mg Capsule) 1,000 Mg Cap, 1,000 MG PO BID WITH MEALS Prescribed by: JEMIMA DOMINGUEZ on 12/29/16 0906 Pantoprazole Sodium (Pantoprazole Sodium) 40 Mg Tablet.dr, 40 MG PO 1800, (Reported) Entered as Reported by: DANI MURGUIA on 03/30/15 1151 Ubidecarenone/Vit E Acetate (Co Q-10 100 mg Softgel) 1 Each Capsule, 100 MG PO 1800, (Reported) Entered as Reported by: MANUELITO VIEIRA on 12/28/16921 Review of Systems Review of Systems Constitutional: chills; No fever EENTM: No Nose Congestion, No Throat Pain Respiratory: Denies Cough, Denies Shortness of Air Cardiovascular: Denies Chest Pain, Denies Edema Gastrointestinal: Diarrhea, Nausea, Vomiting Genitourinary: No Symptoms Reported Musculoskeletal: no symptoms reported Skin: no symptoms reported All Other Systems Reviewed Negative Unless Noted: Yes Past Dunnxby-Vanjkr-Nrmokw Hx Patient Social History Tobacco Use?: No Substance use?: No Alcohol Use?: No Seasonal Allergies Seasonal Allergies: No Past Medical History Surgeries: Yes CABG, Coronary Stent, Vascular Surgery Respiratory: No Cardiac: Yes Coronary Artery Disease, High Cholesterol, Hypertension, Peripheral Vascular Neurological: No Reproductive Disorders: No Gastrointestinal: Yes Gastroesophageal Reflux Musculoskeletal: Yes Arthritis Endocrine: Yes Hypothyroidsim, Diabetes, Non-Insulin dep Cancer: No Psychosocial: No Integumentary: No Blood Disorders: No Adverse Reaction/Blood Tranf: No Family Medical History Reviewed Nursing Family Hx No Pertinent Family Hx Physical Exam Vital Signs Vital Signs - First Documented 10/08/21 13:26 Temp 37.1 Pulse 70 Resp 18 B/P (MAP) 133/94 (107) Pulse Ox 96 O2 Delivery Room Air Capillary Refill : Height/Weight/BMI Height: 5'5.00" Weight: 164lbs. 0.0oz. 74.663241fr; 27.6 BMI Method:Stated General Appearance: WD/WN, mild distress (Nausea and vomiting) HEENT: PERRL/EOMI, pharynx normal Neck: full range of motion, supple Respiratory: lungs clear, normal breath sounds Cardiovascular: no murmur, tachycardia Peripheral Pulses: 2+ Dorsalis Pedis (R), 2+ Left Dors-Pedis (L), 2+ Radial Pulses (R), 2+ Radial Pulses (L) Gastrointestinal: soft, abnormal bowel sounds (Hyperactive) Extremities: non-tender, normal inspection Back: normal inspection, no CVA tenderness, no vertebral tenderness Neurologic/Psychiatric: alert, oriented x 3 Skin: normal color, warm/dry Progress/Results/Core Measures Results/Orders Lab Results Laboratory Tests Test 10/08/21 13:43 10/08/21 13:45 10/08/21 14:40 Range/Units White Blood Count 14.6 H 4.3-11.0 10^3/uL Red Blood Count 4.35 3.80-5.11 10^6/uL Hemoglobin 13.8 11.5-16.0 g/dL Hematocrit 41 35-52 % Mean Corpuscular Volume 93 80-99 fL Mean Corpuscular Hemoglobin 32 25-34 pg Mean Corpuscular Hemoglobin Concent 34 32-36 g/dL Red Cell Distribution Width 12.9 10.0-14.5 % Platelet Count 225 130-400 10^3/uL Mean Platelet Volume 9.6 9.0-12.2 fL Immature Granulocyte % (Auto) 1 % Neutrophils (%) (Auto) 94 H 42-75 % Lymphocytes (%) (Auto) 3 L 12-44 % Monocytes (%) (Auto) 3 0-12 % Eosinophils (%) (Auto) 0 0-10 % Basophils (%) (Auto) 0 0-10 % Neutrophils # (Auto) 13.7 H 1.8-7.8 10^3/uL Lymphocytes # (Auto) 0.5 L 1.0-4.0 10^3/uL Monocytes # (Auto) 0.4 0.0-1.0 10^3/uL Eosinophils # (Auto) 0.0 0.0-0.3 10^3/uL Basophils # (Auto) 0.0 0.0-0.1 10^3/uL Immature Granulocyte # (Auto) 0.1 0.0-0.1 10^3/uL Neutrophils % (Manual) 94 % Lymphocytes % (Manual) 2 % Monocytes % (Manual) 2 % Band Neutrophils 2 % Blood Morphology Comment NORMAL Sodium Level 138 135-145 MMOL/L Potassium Level 4.1 3.6-5.0 MMOL/L Chloride Level 102 98-107 MMOL/L Carbon Dioxide Level 20 L 21-32 MMOL/L Anion Gap 16 H 5-14 MMOL/L Blood Urea Nitrogen 17 7-18 MG/DL Creatinine 0.77 0.60-1.30 MG/DL Estimat Glomerular Filtration Rate 71 BUN/Creatinine Ratio 22 Glucose Level 188 H 70-105 MG/DL Calcium Level 9.1 8.5-10.1 MG/DL Corrected Calcium 8.9 8.5-10.1 MG/DL Magnesium Level 1.7 1.6-2.4 MG/DL Total Bilirubin 1.0 0.1-1.0 MG/DL Aspartate Amino Transf (AST/SGOT) 23 5-34 U/L Alanine Aminotransferase (ALT/SGPT) 21 0-55 U/L Alkaline Phosphatase 64 40-136 U/L Total Protein 7.0 6.4-8.2 GM/DL Albumin 4.3 3.2-4.5 GM/DL TSH [facility] Testing 1.18 0.35-4.94 UIU/ML Influenza Type A (RT-PCR) Not Detected Not Detecte Influenza Type B (RT-PCR) Not Detected Not Detecte SARS-CoV-2 RNA (RT-PCR) Not Detected Not Detecte Urine Color YELLOW Urine Clarity TURBID Urine pH 5.5 5-9 Urine Specific [place] >=1.030 1.016-1.022 Urine Protein 1+ H NEGATIVE Urine Glucose (UA) NEGATIVE NEGATIVE Urine Ketones NEGATIVE NEGATIVE Urine Nitrite NEGATIVE NEGATIVE Urine Bilirubin NEGATIVE NEGATIVE Urine Urobilinogen 0.2 < = 1.0 MG/DL Urine Leukocyte Esterase NEGATIVE NEGATIVE Urine RBC (Auto) TRACE-I H NEGATIVE Urine RBC 2-5 H /HPF Urine WBC 2-5 /HPF Urine Squamous Epithelial Cells 2-5 /HPF Urine Crystals NONE /LPF Urine Bacteria LARGE H /HPF Urine Casts NONE /LPF Urine Mucus NEGATIVE /LPF Urine Culture Indicated YES My Orders Orders - [place],CAROL D MD Cbc With Automated Diff (10/08/21 13:44) Comprehensive Metabolic Panel (10/08/21 13:44) Magnesium (10/08/21 13:44) Thyroid Analyzer (10/08/21 13:44) Influenza A And B By Pcr (10/08/21 13:44) Ondansetron Injection (Zofran Injectio (10/08/21 13:45) Lactated Ringers (Lr 1000 Ml Iv Solution (10/08/21 13:44) Ed Iv/Invasive Line Start (10/08/21 13:44) Covid 19 Inhouse Test (10/08/21 13:44) Manual Differential (10/08/21 13:43) Medications Given in ED Current Medications Medications Dose Ordered Sig/Britney Route Start Time Stop Time Status Last Admin Dose Admin Ondansetron HCl 4 mg ONCE ONCE IVP 10/08/21 13:45 10/08/21 13:47 DC 10/08/21 13:54 4 MG Vital Signs/I&O 10/08/21 10/08/21 10/08/21 10/08/21 13:26 14:23 14:45 15:07 Temp 37.1 Pulse 70 89 92 87 Resp 18 18 18 18 B/P (MAP) 133/94 (107) 143/57 157/69 161/63 Pulse Ox 96 97 96 99 O2 Delivery Room Air Room Air Room Air Room Air Progress Progress Note : Progress Note Seen and evaluated. IV, labs and UA ordered. LR 1 L bolus and Zofran 4 mg IV ordered. Monitor patient. 1515: Overall much better. Sitting up and ready to go home. States nausea is gone and diarrhea has improved. Labs reviewed and show no significant findings. White count slightly elevated but expected with vomiting and diarrhea. UA without nitrites or leuks. I do believe it is contaminated. She has no symptoms otherwise so we will not treat that. I will send out prescription for ondansetron. Discharged home with return precautions. Patient verbalized understanding of instructions and agreement with plan. Departure Impression Primary Impression: Nausea vomiting and diarrhea Disposition: HOME, SELF-CARE Condition: Improved Departure-Patient Inst. Decision time for Depature: 15:20 Referrals: [facility] (PCP/Family) Primary Care Physician Patient Instructions: Diarrhea, Adult ED, Nausea and Vomiting, Adult Add. Discharge Instructions: All discharge instructions reviewed with patient and/or family. Voiced understanding. Drink plenty of fluids by taking small sips frequently. Clear liquid diet for the next 12 to 24 hours and then advance as tolerated. Continue home medications as previously prescribed. Follow-up with your doctor in a few days for recheck. Return for worse pain, fever, vomiting, weakness, breathing problems, blood in vomit or stool or other concerns as needed. Scripts Ondansetron (Ondansetron Odt) 4 Mg Tab.rapdis 4 MG PO Q6H PRN for NAUSEA/VOMITING, #12 TAB 0 Refills Prov: CAROL NAIR MD 10/08/21 CAROL NAIR MD Oct 08, 2021 13:54
[2021-10-08 13:58] LABS: BASOPHILS % (AUTO) 0 % (0-10); EOSINOPHILS % (AUTO) 0 % (0-10); HEMATOCRIT 41 % (35-52); HEMOGLOBIN 13.8 g/dL (11.5-16.0); LYMPHOCYTES # (AUTO) 0.5 10^3/uL (1.0-4.0); LYMPHOCYTES % (AUTO) 3 % (12-44); MEAN CORPUSCULAR HEMOGLOBIN 32 pg (25-34); MEAN CORPUSCULAR HGB CONC 34 g/dL (32-36); MEAN CORPUSCULAR VOLUME 93 fL (80-99); MEAN PLATELET VOLUME 9.6 fL (9.0-12.2); MONOCYTES # (AUTO) 0.4 10^3/uL (0.0-1.0); MONOCYTES % (AUTO) 3 % (0-12); NEUTROPHILS # (AUTO) 13.7 10^3/uL (1.8-7.8); NEUTROPHILS % (AUTO) 94 % (42-75); PLATELET COUNT 225 10^3/uL (130-400); WHITE BLOOD COUNT 14.6 10^3/uL (4.3-11.0)
[2021-10-08 14:02] LABS: ALBUMIN 4.3 GM/DL (3.2-4.5)
[2021-10-08 14:03] LABS: POTASSIUM 4.1 MMOL/L (3.6-5.0)
[2021-10-08 14:04] LABS: CALCIUM 9.1 MG/DL (8.5-10.1)
[2021-10-08 14:09] LABS: CREATININE SERUM 0.77 MG/DL (0.60-1.30)
[2021-10-08 14:12] LABS: MAGNESIUM 1.7 MG/DL (1.6-2.4)
[2021-10-08 14:20] LABS: BAND NEUTROPHILS 2 %; NEUTROPHILS % (MANUAL) 94 %
[2021-10-08 14:21] LABS: LYMPHOCYTES % (MANUAL) 2 %; MONOCYTES % (MANUAL) 2 %; RBC MORPH NORMAL
[2021-10-08 14:33] LABS: TSH (THYROID ANALYZER) 1.18 UIU/ML (0.35-4.94)
[2021-10-08 14:49] LABS: BILIRUBIN,URINE NEGATIVE (NEGATIVE); CLARITY,URINE TURBID; COLOR,URINE YELLOW; GLUCOSE, URINE (UA) NEGATIVE (NEGATIVE); KETONES,URINE NEGATIVE (NEGATIVE); LEUKOCYTE ESTERASE ,URINE NEGATIVE (NEGATIVE); NITRITE,URINE NEGATIVE (NEGATIVE); PH,URINE 5.5 (5-9); PROTEIN,URINE 1+ (NEGATIVE)
[2021-10-08 14:55] LABS: BACTERIA,URINE LARGE /HPF
[2021-10-08] MEDS ORDERED: ONDA4TAB11 PO (15:22)
[2021-10-08 15:24] VITALS: BP 161/63
== END 2021-10-08 15:24 | disposition home or self-care (01) ==
LOC: EDUNIT# 13:10 → ER 13:11
DX: R11.2 Nausea with vomiting, unspecified (principal); R19.7 Diarrhea, unspecified; I10 Essential (primary) hypertension; K21.9 Gastro-esophageal reflux disease without esophagitis; I25.10 Atherosclerotic heart disease of native coronary artery without angina pectoris; E78.00 Pure hypercholesterolemia, unspecified; E03.9 Hypothyroidism, unspecified; E11.9 Type 2 diabetes mellitus without complications; Z20.822 Contact with and (suspected) exposure to COVID-19; Z79.82 Long term (current) use of aspirin; Z79.899 Other long term (current) drug therapy; Z79.01 Long term (current) use of anticoagulants; Z79.890 Hormone replacement therapy
CPT/HCPCS: 36415; 80053; 81000; 83735; 84443; 85007; 85027; 87077; 87088; 87186; 87636